=== PATIENT | male | born 1960 | race Caucasian/White ===

== ENCOUNTER 2019-11-24 08:35 | Emergency (ER) | payer OTHER, SELFPAY ==
[2019-11-24 08:42] VITALS: BP 159/85; PULSE 97; RESP 16; TEMP 36.7; O2SAT 97
--- NOTE | 2019-11-24 09:15 | ED.GENADUL_ITS ---
Discharge Plan Disposition Patient Disposition: HOME Condition: Good Discharge Details Chief Complaint: Orthopedic Clinical Impression: Shoulder sprain, Contusion of rib Primary Care Provider: Bessie Aviles V ED Provider: Keisha Rust Discharge Instructions Instructions: Shoulder Sprain (ED), Rib Contusion (ED) Additional Instructions: Rest. Activities as tolerated. Elevate injury to prevent swelling. Ice to the area of discomfort for 15 min. 3-5 times daily. Sling for 3 to 5 days. Do not sleep in sling, remove when desired. Pendulum exercises as discussed for comfort. Motrin every 8 hours with food or Tylenol every 6 hours for soreness if needed over the counter for comfort. Followup with orthopedic doctor as discussed if not improving in one week. Deep breathing exercises every 1-2 hours, 10 deep breaths while sitting as discussed. Ice to the chest wall for your first week of discomfort then you may begin using heat to the area as discussed Recheck with primary care doctor if pain is not improving in the next 5 to 7 days. Return for any worsening or concerns sooner if needed. Referrals: Aman Martinez MD [ [facility] STAFF PHYSICIAN] - Medical Decision Making Is a very pleasant 59-year-old patient presenting after a trip and fall this morning landing on outstretched left arm. Patient complaining of left shoulder pain as well as left rib pain. On exam patient does have left clavicle, shoulder as well as scapula tenderness, limited abduction of the left shoulder. No pain distal to the humerus. Distal neurovascularly intact. Patient also has notable left rib tenderness without obvious crepitus. Breath sounds full and equal. Vital signs reviewed. Patient appears in no apparent distress. Denies any associated head neck or back pain. Denies any other extremity injury. Plan to order x-rays of ribs as well as shoulder. Patient agrees with plan of care. Offered Motrin or Tylenol declines. X-rays of ribs, clavicle, shoulder reveal no acute fractures or injury. Reviewed with patient. Discussed use of sling, possible shoulder sprain versus potential ligamentous injury. Encourage pendulum exercise, sling for 3 to 5 days, rice and orthopedic follow-up if not improving in a week. Patient reports his understanding. Also discussed rib injury, deep breathing exercises, conservative treatments as well as alarming symptoms for which patient should return. Patient reports his understanding and agrees with plan of care. Encouraged follow-up with PCP if not improving promptly. The patient was stable and requested discharge. Prior to discharge, my usual and customary return precautions were reviewed with the patient - this included follow-up instructions and reasons to return to the Emergency Department if conditions worsens, does not improve as expected, or other new concerns arise. HPI General Date/Time Provider Initiated Documentation: 11/24/19 08:57 . HPI Narrative: Is a very pleasant 59-year-old gentleman presenting to the emergency room for a trip and fall forward on steps outside. Patient reports he kicked a step accidentally and was thrown forward. Patient fell on left outstretched arm. Patient complaining of both left shoulder pain as well as left rib discomfort. Patient denies striking head. Denies use of blood thinners. Denies headache, dizziness, nausea, vomiting or any associated head injury symptoms. Patient denies any neck or back pain. Patient specifically complaining of left shoulder pain and limited abduction of arm. Patient denies numbness, tingling or weakness of arms or legs. Patient also complaining of mild left discomfort in the chest which he is aware of but again no associated difficulty breathing shortness of breath or wheezing. Pain in the left chest is reproducible with palpation. Patient denies abdominal pain. Patient denies any lower extremity injury. Injuries occurred approximately 630 this morning. Related Data Allergies Allergy/AdvReac Type Severity Reaction Status Date / Time No Known Allergies Allergy Unverified 11/24/19 08:46 General Stated Complaint: Orthopedic BREANNA: 3 Review of Systems All systems reviewed & are unremarkable except as noted in HPI and below Constitutional Constitutional: Denies fatigue and Denies headache(s) ENT Ears, Nose, Mouth, and Throat: Denies headache(s) and Denies neck pain Cardiovascular Cardiovascular: Reports chest pain, Denies diaphoresis, Denies palpitations, Denies dyspnea and Denies dyspnea on exertion Respiratory Respiratory: Denies cough, Reports pain on inspiration, Reports pain with cough, Denies dyspnea, Denies dyspnea on exertion and Denies wheezing Gastrointestinal Gastrointestinal: Denies abdominal pain Genitourinary Genitourinary: Denies hematuria Musculoskeletal Musculoskeletal: Denies abnormal gait, Denies back pain, Denies deformity, Reports limited range of motion (Left shoulder), Denies neck pain, Denies numbness and Denies tingling Integumentary/Breasts Skin/Breast: Denies wounds Neurologic Neurologic: Denies abnormal gait, Denies headache(s), Denies numbness and Denies tingling Endocrine Endocrine: Denies fatigue and Denies palpitations Allergic/Immunologic Allergic/Immunologic: Denies wheezing [facility] Social History Smoking/Tobacco Use Status: Former Tobacco Use Drug use: Never Do you feel safe in your relationship?: Yes Exam Narrative Exam Narrative: CONST: Healthy appearing patient, in no acute distress. Well hydrated. Alert and oriented. HENMT: Head nomocephalic, normal to inspection. Atraumatic. Hearing grossly normal. EYES: General normal appearance. Alignment normal. Eyelids normal. Conjunctiva normal. NECK: Normal visual inspection. FROM. Trachea midline. No Midline tenderness. CHEST: Normal insepection of the chest. Left anterior and lateral chest wall tenderness with palpation. No obvious deformities. No crepitus. RESP: Normal respiratory effort. Speaking full sentences. No cough. No audible wheezing. No retractions. Breath sounds are clear, full and equal bilaterally. No rhonchi, rales or wheezing. CARDIO: No JVD. Regular rate and rhythm no murmur. No muffled heart sounds. MUSCULOSKELETAL: Normal Gait. FROM of all extremities w/ exception of left shoulder. Left mid and distal clavicle pain with palpation. Pain with palpat ion of the GH joint on the left. Mild lateral shoulder tenderness with palpation. Moderate scapular tenderness with palpation. Limited abduction of left shoulder due to pain. No significant humeral pain with palpation, no elbow pain with palpation. Supination pronation intact at the elbow. No wrist pain or hand pain with palpation. Sensation intact distally. Pulses intact distally. GI: Abdomen is soft, nontender, bowel sounds present in all 4 quadrants. No rebound, guarding or peritoneal signs. Specifically no left upper quadrant tenderness SKIN: Normal. Dry. No rashes. No wounds noted NEURO: Alert and awake. Speech clear. PSYCH: Normal affect. Cooperative. Course Vital Signs Vital signs: Vital Signs Temperature 36.7 C 11/24/19 08:42 Pulse 97 H 11/24/19 08:42 Respiratory Rate 16 11/24/19 08:42 Blood Pressure 159/85 H 11/24/19 08:42 Pulse Oximetry 97 11/24/19 08:42 Temperature 36.7 C 11/24/19 08:42 Temperature Source Skin 11/24/19 08:42 Pulse 97 H 11/24/19 08:42 Respiratory Rate 16 11/24/19 08:42 Respiratory Effort 11/24/19 08:46 Blood Pressure 159/85 H 11/24/19 08:42 Blood Pressure Position Sitting 11/24/19 08:42 Pulse Oximetry 97 11/24/19 08:42 Oxygen Delivery Method Room Air 11/24/19 08:42 Oxygen Flow Rate 0 11/24/19 08:42 Pain Level 3 11/24/19 08:42
--- NOTE | 2019-11-24 09:30 | DI.RAD_ITS ---
EXAM: XR RIBS LT PA CHEST 3V INDICATION: pain, fall left rib pain. COMPARISON: RIGHT RIBS PA CXR-3 VIEWS from 07/25/2013 RIGHT SHOULDER COMPLETE from 05/22/2016 RIGHT SHOULDER COMPLETE from 03/30/2017 XR CLAVICLE LT from 11/24/2019 TECHNIQUE: 2D digital imaging was performed. FINDINGS: Heart size and pulmonary vasculature are within normal limits. No focal consolidating infiltrates ar e seen. There is pulmonary scarring seen in the lung bases. The findings are more prominent compare d to the prior examination from 2012. No pleural effusion or pneumothorax is identified. No left ri b fracture is seen. IMPRESSION: No rib fracture.
--- NOTE | 2019-11-24 09:33 | DI.RAD_ITS ---
EXAM: XR CLAVICLE LT INDICATION: fall, injury. COMPARISON: No exams were available for comparison TECHNIQUE: 2D digital imaging was performed. FINDINGS: No acute fracture or dislocation is present. IMPRESSION: No acute fracture or dislocation.
--- NOTE | 2019-11-24 09:35 | DI.RAD_ITS ---
EXAM: XR SHOULDER LT COMPLETE 2+V INDICATION: fall, injury, PAIN COMPARISON: RIGHT SHOULDER COMPLETE from 03/30/2017 TECHNIQUE: 2D digital imaging was performed. FINDINGS: No acute fracture or dislocation is identified. There are degenerative changes seen at the acromiocl avicular joint. Soft tissue calcifications are seen lateral to the acromion likely reflecting calcif ic tendinitis. Soft tissues are otherwise unremarkable. IMPRESSION: No acute abnormality.
== END 2019-11-24 11:13 | disposition home or self-care (01) ==
PROVIDERS: Emergency Provider Physician Assistant; PCP Family Medicine
DX: S43.402A Unspecified sprain of left shoulder joint, initial encounter (principal); S20.212A Contusion of left front wall of thorax, initial encounter; W01.198A Fall on same level from slipping, tripping and stumbling with subsequent striking against other object, initial encounter; W10.8XXA Fall (on) (from) other stairs and steps, initial encounter
CPT/HCPCS: 71101; 99284; 73000; 73030; L3650

== ENCOUNTER 2019-12-08 17:24 | Outpatient (REF) | payer OTHER, SELFPAY ==
[2019-12-08 22:18] LABS: HCT 39.7 % (40.0-50.0); HGB 13.5 g/dL (13.5-17.5); Mean Corpuscular Hemoglobin 30.5 pg (27.0-33.0); Mean Corpuscular Volume 89.6 fL (80-95); Mean Platelet Volume 10.4 fL (8.0-11.0); Platelet Count 520 x1000/uL (130-400); RBC 4.43 m/cumm (4.50-6.00); White Blood Cell Count 13.65 k/cumm (4.4-10.8)
[2019-12-08 23:05] LABS: ALT 25 U/L (16-63); AST 17 U/L (15-37); Albumin 3.6 g/dL (3.4-5.0); Alkaline Phosphatase 117 U/L (46-116); Anion Gap 10.7 mmol/L (3-11); BUN 14 mg/dL (7-18); Bilirubin, Total 0.2 mg/dL (0.2-1.0); CO2 25.3 mmol/L (21.0-32.0); CREATININE 1.11 mg/dL (0.70-1.30); Calcium 8.7 mg/dL (8.5-10.1); Chloride 106 mmol/L (98-107); Glucose 113 mg/dL (74-106); Sodium 142 mmol/L (136-145); TSH (W/Ref FT4) 1.52 uIU/mL (0.36-3.74); Total Protein 6.8 g/dL (6.4-8.2); Uric Acid 4.9 mg/dL (3.5-7.2)
[2019-12-10 08:59] LABS: C-Reactive Protein 3.22 mg/dL (0.0-0.3)
[2019-12-10 10:57] LABS: Hepatitis C Ab w Rflx HCV PCR Negative (Negative)
[2019-12-11 13:04] LABS: Lyme Ab w Rflx to Lyme Confirm Negative (Negative)
[2019-12-15 00:03] LABS: Anaplasma phagocytophilum Negative (Negative); B. miyamotoi PCR Negative (Negative); Babesia divergens/MO-1 Negative (Negative); Babesia duncani Negative (Negative); Babesia microti Negative (Negative); Ehrlichia chaffeensis Negative (Negative); Ehrlichia ewingii/canis Negative (Negative); Ehrlichia muris eauclairensis Negative (Negative)
== END 2019-12-08 17:44 ==
LOC: NCHCN 17:24
PROVIDERS: PCP Family Medicine; Visit Provider Family Medicine
DX: Z00.00 Encounter for general adult medical examination without abnormal findings (principal); R53.83 Other fatigue; E78.5 Hyperlipidemia, unspecified; M25.40 Effusion, unspecified joint; Z12.5 Encounter for screening for malignant neoplasm of prostate; Z11.59 Encounter for screening for other viral diseases; M25.512 Pain in left shoulder; R07.81 Pleurodynia
CPT/HCPCS: 80053; 84153; 85027; 86803; 87798; 84443; 84550; 86140; 86618

== ENCOUNTER 2019-12-11 17:02 | Outpatient (REF) | payer OTHER, SELFPAY ==
[2019-12-11 19:56] LABS: ESR 72 mm/hr (1-20)
[2019-12-14 15:16] LABS: ANA Interpretation Positive (Negative); ANA Titer Pattern 1:160 Homogeneous
== END 2019-12-11 17:22 ==
LOC: NCHCN 17:02
PROVIDERS: PCP Family Medicine; Visit Provider Family Medicine
DX: M25.40 Effusion, unspecified joint (principal)
CPT/HCPCS: 85652; 86038; 86431

== ENCOUNTER 2019-12-17 01:41 | Outpatient (CLI) | payer OTHER, SELFPAY ==
--- NOTE | 2019-12-17 09:33 | DI.RAD_ITS ---
EXAM: XR FOOT RT COMPLETE CLINICAL HISTORY: FOOT PAIN, M79.673, JOINT SWELLING, M25.40 TECHNIQUE: COMPARISON: No exams were available for comparison FINDINGS: Three views were obtained. There is an apparent old osteotomy of the head of the 5th metatarsal. Mi ld degenerative changes of the IP joints noted. No other significant abnormality seen. IMPRESSION:
--- NOTE | 2019-12-17 09:36 | DI.RAD_ITS ---
EXAM: XR ARTHRITIS SERIES CLINICAL HISTORY: JOINT SWELLING, M25.40 TECHNIQUE: COMPARISON: LEFT HAND COMPLETE from 07/25/2013 FINDINGS: Two views of each hand and wrist were obtained. Old healed fracture deformity of right 5th metacarpa l noted. No other bony or soft tissue abnormality seen. Carpal alignment appears within normal limi ts bilaterally. IMPRESSION:
[2019-12-22 14:38] LABS: dsDNA Ab, IgG <12.3 IU/mL (<30.0)
== END 2019-12-17 02:01 ==
PROVIDERS: PCP Family Medicine; Visit Provider Family Medicine
DX: M79.671 Pain in right foot (principal); M19.071 Primary osteoarthritis, right ankle and foot; M25.541 Pain in joints of right hand; M25.542 Pain in joints of left hand
CPT/HCPCS: 36415; 73120; 73630; 86225

== ENCOUNTER 2019-12-29 01:54 | Outpatient (CLI) | payer OTHER, SELFPAY ==
--- NOTE | 2019-12-29 07:30 | DI.MRI_ITS ---
EXAM: MR UPPER JOINT LT WO CLINICAL HISTORY: Acute, traumatic biceps anchor pain and rotator cuff weakness, SLAP LESION,IMPINGE MENT SYNDROME, TENDINITIS, M75.102,S43.432A,M75.52,M75.42,M75.22 TECHNIQUE: Multiplanar multisequence MRI was performed. COMPARISON: No exams were available for comparison FINDINGS: There is increased signal seen on the T2 weighted images within the supraspinatus tendon anteriorly s uspicious for partial tear. Infraspinatus and teres minor tendons are unremarkable. There is increased signal and thickening of the superior aspect of the subscapularis tendon near its insertion site. This may represent partial tear versus tendinitis. The biceps tendon is of homogeneously low signal. There does not appear to be a tear. The rotator cuff muscles show normal signal and size. No significant fatty atrophy is present. There are degenerative signal changes at the acromioclavicular joint. No evidence of an occult fract ure is present. The glenohumeral joint appears unremarkable. The glenoid labrum is grossly unremarkable on this noncontrast examination. There is fluid seen in the subacromial subdeltoid bursa consistent with bursitis. No evidence of a s oft tissue mass is seen. The coracoclavicular ligaments are intact. IMPRESSION: 1. Findings suspicious for a partial tear of the supraspinatus tendon. 2. Partial tear versus tendinosis of the subscapularis tendon. 3. No evidence of a biceps tendon tear. 4. Subacromial subdeltoid bursitis.
== END 2019-12-29 02:14 ==
PROVIDERS: PCP Family Medicine; Visit Provider Student in an Organized Health Care Education/Training Program
DX: M25.512 Pain in left shoulder (principal); M75.102 Unspecified rotator cuff tear or rupture of left shoulder, not specified as traumatic; M75.42 Impingement syndrome of left shoulder; M75.22 Bicipital tendinitis, left shoulder
CPT/HCPCS: 73221

== ENCOUNTER 2020-03-23 03:34 | Outpatient (CLI) | payer OTHER, SELFPAY ==
[2020-03-23 13:33] LABS: Abs Immature Grans 0.04 k/cumm (0.0-0.09); Absolute Basophil Count 0.03 k/cumm (0.0-0.2); Absolute Eosinophil Count 0.29 k/cumm (0.0-0.7); Absolute Lymphocyte Count 2.11 k/cumm (1.2-3.4); Absolute Monocyte Count 0.83 k/cumm (0.11-0.7); Absolute Neutrophil Count 6.47 k/cumm (1.2-6.7); Basophils % 0.3; HGB 13.6 g/dL (13.5-17.5); Immature Grans % 0.4 %; Lymphocytes % 21.6; Mean Corpuscular Volume 91.1 fL (80-95); Mean Platelet Volume 9.2 fL (8.0-11.0); Monocytes % 8.5; Neutrophils % 66.2; Platelet Count 470 x1000/uL (130-400); RBC 4.39 m/cumm (4.50-6.00); RBC Distribution Width 14.9 % (11.8-14.1); White Blood Cell Count 9.77 k/cumm (4.4-10.8)
[2020-03-23 14:18] LABS: ALT 40 U/L (16-63); AST 21 U/L (15-37); Albumin 3.7 g/dL (3.4-5.0); Alkaline Phosphatase 111 U/L (46-116); Anion Gap 5.8 mmol/L (3-11); BUN 16 mg/dL (7-18); Bilirubin, Total 0.2 mg/dL (0.2-1.0); C-Reactive Protein 0.58 mg/dL (0.0-0.3); CO2 28.2 mmol/L (21.0-32.0); Calcium 9.2 mg/dL (8.5-10.1); Chloride 105 mmol/L (98-107); Glucose 86 mg/dL (74-106); Potassium 4.4 mmol/L (3.5-5.1); Sodium 139 mmol/L (136-145); Total Protein 6.9 g/dL (6.4-8.2)
== END 2020-03-23 03:54 ==
PROVIDERS: PCP Family Medicine; Visit Provider Internal Medicine Rheumatology
DX: M05.69 Rheumatoid arthritis of multiple sites with involvement of other organs and systems (principal); Z79.899 Other long term (current) drug therapy
CPT/HCPCS: 36415; 80053; 85025; 86140

== ENCOUNTER 2020-06-03 02:08 | Outpatient (CLI) | payer MEDICAID, SELFPAY ==
[2020-06-03 11:15] LABS: Abs Immature Grans 0.05 k/cumm (0.0-0.09); Absolute Basophil Count 0.02 k/cumm (0.0-0.2); Absolute Lymphocyte Count 2.11 k/cumm (1.2-3.4); Absolute Monocyte Count 0.81 k/cumm (0.11-0.7); Basophils % 0.2; Eosinophils % 2.1; HCT 44.5 % (40.0-50.0); HGB 15.1 g/dL (13.5-17.5); Immature Grans % 0.5 %; Lymphocytes % 22.5; Mean Corp. HGB Concentration 33.9 g/dL (32.0-36.0); Mean Corpuscular Hemoglobin 30.8 pg (27.0-33.0); Mean Corpuscular Volume 90.8 fL (80-95); Mean Platelet Volume 9.8 fL (8.0-11.0); Monocytes % 8.6; Neutrophils % 66.1; Platelet Count 418 x1000/uL (130-400); RBC Distribution Width 13.8 % (11.8-14.1); White Blood Cell Count 9.39 k/cumm (4.4-10.8)
[2020-06-03 11:48] LABS: ALT 46 U/L (16-63); AST 25 U/L (15-37); Alkaline Phosphatase 111 U/L (46-116); Anion Gap 10.2 mmol/L (3-11); BUN 12 mg/dL (7-18); Bilirubin, Total 0.6 mg/dL (0.2-1.0); C-Reactive Protein 0.35 mg/dL (0.0-0.3); CO2 25.8 mmol/L (21.0-32.0); CREATININE 1.12 mg/dL (0.70-1.30); Calcium 9.3 mg/dL (8.5-10.1); Chloride 103 mmol/L (98-107); Glucose 102 mg/dL (74-106); Potassium 4.4 mmol/L (3.5-5.1); Sodium 139 mmol/L (136-145); Total Protein 7.2 g/dL (6.4-8.2)
== END 2020-06-03 02:28 ==
PROVIDERS: PCP Family Medicine; Visit Provider Internal Medicine Rheumatology
DX: Z79.899 Other long term (current) drug therapy (principal); M05.69 Rheumatoid arthritis of multiple sites with involvement of other organs and systems
CPT/HCPCS: 36415; 80053; 85025; 86140

== ENCOUNTER 2020-08-17 01:06 | Outpatient (CLI) | payer MEDICAID, SELFPAY ==
[2020-08-17 12:39] LABS: Abs Immature Grans 0.05 10^3/uL (0.0-0.06); Absolute Basophil Count 0.04 10^3/uL (0.0-0.2); Absolute Eosinophil Count 0.19 10^3/uL (0.0-0.7); Absolute Lymphocyte Count 2.22 10^3/uL (1.2-3.4); Absolute Monocyte Count 0.68 10^3/uL (0.1-0.8); Absolute Neutrophil Count 7.41 10^3/uL (1.2-6.7); Basophils % 0.4; Eosinophils % 1.8; HCT 39.7 % (40.0-50.0); HGB 13.5 g/dL (13.5-17.5); Immature Grans % 0.5; MCH 31.8 pg (27.0-33.0); MCV 93.4 fL (80-95); MPV 9.5 fL (8.0-11.0); Monocytes % 6.4; Neutrophils % 69.9; Nucleated RBC 0 %; Platelet Count 400 10^3/uL (130-400); RBC 4.25 10^6/uL (4.36-5.78); RDW 13.2 % (11.8-14.1); RDW-SD 45.2 fL; WBC 10.59 10^3/uL (4.4-10.8)
[2020-08-17 13:15] LABS: ALT 39 U/L (16-63); AST 21 U/L (15-37); Albumin 3.8 g/dL (3.4-5.0); Alkaline Phosphatase 99 U/L (46-116); Anion Gap 7.1 mmol/L (3-11); BUN 17 mg/dL (7-18); Bilirubin, Total 0.3 mg/dL (0.2-1.0); C-Reactive Protein 0.26 mg/dL (0.0-0.3); CO2 28.9 mmol/L (21.0-32.0); CREATININE 1.34 mg/dL (0.70-1.30); Calcium 8.9 mg/dL (8.5-10.1); Chloride 105 mmol/L (98-107); Estimated GFR 54.01 (mL/min/1.73m2); Glucose 125 mg/dL (74-106); Potassium 4.3 mmol/L (3.5-5.1); Sodium 141 mmol/L (136-145); Total Protein 6.6 g/dL (6.4-8.2)
== END 2020-08-17 01:26 ==
PROVIDERS: PCP Family Medicine; Visit Provider Internal Medicine Rheumatology
DX: M05.69 Rheumatoid arthritis of multiple sites with involvement of other organs and systems (principal); Z79.899 Other long term (current) drug therapy
CPT/HCPCS: 36415; 80053; 85025; 86140

== ENCOUNTER 2020-11-15 03:15 | Outpatient (CLI) | payer MEDICAID, SELFPAY ==
[2020-11-15 11:48] LABS: Abs Immature Grans 0.05 10^3/uL (0.0-0.06); Absolute Basophil Count 0.05 10^3/uL (0.0-0.2); Absolute Eosinophil Count 0.23 10^3/uL (0.0-0.7); Absolute Lymphocyte Count 2.05 10^3/uL (1.2-3.4); Absolute Monocyte Count 0.96 10^3/uL (0.1-0.8); Absolute Neutrophil Count 6.77 10^3/uL (1.2-6.7); Basophils % 0.5; Eosinophils % 2.3; HCT 44.9 % (40.0-50.0); Immature Grans % 0.5; Lymphocytes % 20.3; MCH 31.6 pg (27.0-33.0); MCHC 33.4 % (32.0-36.0); MCV 94.5 fL (80-95); MPV 9.6 fL (8.0-11.0); Monocytes % 9.5; Neutrophils % 66.9; Nucleated RBC 0 %; Platelet Count 394 10^3/uL (130-400); RBC 4.75 10^6/uL (4.36-5.78); RDW 13.1 % (11.8-14.1); WBC 10.11 10^3/uL (4.4-10.8)
[2020-11-15 12:40] LABS: ALT 77 U/L (16-63); AST 33 U/L (15-37); Albumin 3.9 g/dL (3.4-5.0); Alkaline Phosphatase 104 U/L (46-116); Anion Gap 5.8 mmol/L (3-11); BUN 13 mg/dL (7-18); Bilirubin, Total 0.4 mg/dL (0.2-1.0); C-Reactive Protein 0.42 mg/dL (0.0-0.3); CO2 28.2 mmol/L (21.0-32.0); Calcium 9.4 mg/dL (8.5-10.1); Chloride 106 mmol/L (98-107); Glucose 92 mg/dL (74-106); Potassium 4.4 mmol/L (3.5-5.1); Sodium 140 mmol/L (136-145)
== END 2020-11-15 03:35 ==
PROVIDERS: PCP Family Medicine; Visit Provider Internal Medicine Rheumatology
DX: M05.69 Rheumatoid arthritis of multiple sites with involvement of other organs and systems (principal); Z79.899 Other long term (current) drug therapy
CPT/HCPCS: 36415; 80053; 85025; 86140

== ENCOUNTER 2021-01-11 04:27 | Outpatient (CLI) | payer MEDICAID, SELFPAY ==
[2021-01-11 11:38] LABS: Abs Immature Grans 0.06 10^3/uL (0.0-0.06); Absolute Basophil Count 0.05 10^3/uL (0.0-0.2); Absolute Eosinophil Count 0.17 10^3/uL (0.0-0.7); Absolute Lymphocyte Count 2.26 10^3/uL (1.2-3.4); Absolute Monocyte Count 0.84 10^3/uL (0.1-0.8); Basophils % 0.5; Eosinophils % 1.8; HCT 42.8 % (40.0-50.0); HGB 14.4 g/dL (13.5-17.5); Immature Grans % 0.6; Lymphocytes % 23.6; MCH 31.4 pg (27.0-33.0); MCHC 33.6 % (32.0-36.0); MCV 93.2 fL (80-95); MPV 9.5 fL (8.0-11.0); Monocytes % 8.8; Neutrophils % 64.7; Nucleated RBC 0 %; Platelet Count 385 10^3/uL (130-400); RBC 4.59 10^6/uL (4.36-5.78); RDW-SD 44.4 fL; WBC 9.58 10^3/uL (4.4-10.8)
[2021-01-11 12:22] LABS: ALT 55 U/L (16-63); AST 27 U/L (15-37); Albumin 3.8 g/dL (3.4-5.0); Alkaline Phosphatase 108 U/L (46-116); Anion Gap 7.7 mmol/L (3-11); BUN 15 mg/dL (7-18); Bilirubin, Total 0.4 mg/dL (0.2-1.0); C-Reactive Protein 0.28 mg/dL (0.0-0.3); CO2 28.3 mmol/L (21.0-32.0); Calcium 8.9 mg/dL (8.5-10.1); Chloride 105 mmol/L (98-107); Glucose 87 mg/dL (74-106); Potassium 4.2 mmol/L (3.5-5.1); Sodium 141 mmol/L (136-145)
[2021-01-11 12:23] LABS: Calculated LDL 140 mg/dL (<100); Cholesterol 199 mg/dL (<200); HDL Cholesterol 48 mg/dL (40-60); Triglyceride 55 mg/dL (<150)
[2021-01-11 22:40] LABS: PSA, Screening 0.7 ng/mL (0.0-4.5)
== END 2021-01-11 04:28 | disposition home or self-care (01) ==
LOC: LBO 04:28
PROVIDERS: PCP Family Medicine; Visit Provider Internal Medicine Rheumatology
DX: E78.5 Hyperlipidemia, unspecified (principal); Z12.5 Encounter for screening for malignant neoplasm of prostate; M05.69 Rheumatoid arthritis of multiple sites with involvement of other organs and systems; Z79.899 Other long term (current) drug therapy
CPT/HCPCS: 36415; 80053; 80061; 84153; 85025; 86140

== ENCOUNTER → 2021-04-03 00:44 | Outpatient (CLI) | payer MEDICAID, SELFPAY ==
--- NOTE | 2021-04-03 10:30 | DI.RAD_ITS ---
Exam(s) XR SHOULDER RT COMPLETE 2+V EXAM: XR SHOULDER RT COMPLETE 2+V CLINICAL HISTORY: CHRONIC RT SHOULDER PAIN, M25.511,G89.29. TECHNIQUE: 2D digital imaging was performed. COMPARISON: CR XR SHOULDER LT COMPLETE 2+V from 11/24/2019 FINDINGS: There is no evidence of fracture or dislocation no abnormal soft tissue calcifications in the subacro mial space. There are mild degenerative changes in the glenohumeral joint. Also mild degenerative c hanges in the acromioclavicular joint. IMPRESSION: Mild degenerative changes. If clinically indicated follow-up MRI can be performed DATA REPOSITORY: RADIATION DOSE DELIVERED:
--- NOTE | 2021-04-03 10:30 | DI.RAD_ITS ---
Exam(s) XR SHOULDER LT COMPLETE 2+V EXAM: XR SHOULDER LT COMPLETE 2+V CLINICAL HISTORY: CHRONIC LT SHOULDER PAIN,M25.512,G89.29. TECHNIQUE: 2D digital imaging was performed. COMPARISON: CR RIGHT SHOULDER COMPLETE from 03/30/2017 CR XR SHOULDER RT COMPLETE 2+V from 04/03/2021 FINDINGS: There is no evidence of acute fracture nor dislocation. However, there is a small 1 millimeter calci fic density off the inferior aspect of the osseous glenoid noted. This may be related to injury at t his level such as Bankart lesion. Other possible is for calcification in the inferior labrum. There are 2 calcific density seen lateral to the acromion both measuring approximately 3 x 2 millimeters. Some degenerative change in the AC joint noted causing mild impingement upon the subacromial space.. Mild degenerative changes in the glenohumeral joint. No os acromiale. Ipsilateral clavicle appear s intact. IMPRESSION: Small calcification just inferior to the osseous glenoid. Correlation with any prior dislocation rec ommended DATA REPOSITORY: RADIATION DOSE DELIVERED:
[2021-04-03 12:10] LABS: Abs Immature Grans 0.06 10^3/uL (0.0-0.06); Absolute Basophil Count 0.07 10^3/uL (0.0-0.2); Absolute Eosinophil Count 0.22 10^3/uL (0.0-0.7); Absolute Lymphocyte Count 2.05 10^3/uL (1.2-3.4); Absolute Monocyte Count 1.12 10^3/uL (0.1-0.8); Absolute Neutrophil Count 5.86 10^3/uL (1.2-6.7); Basophils % 0.7; Eosinophils % 2.3; HCT 45.4 % (40.0-50.0); HGB 15.2 g/dL (13.5-17.5); Immature Grans % 0.6; Lymphocytes % 21.9; MCH 31.6 pg (27.0-33.0); MCHC 33.5 % (32.0-36.0); MCV 94.4 fL (80-95); MPV 9.8 fL (8.0-11.0); Monocytes % 11.9; Neutrophils % 62.6; Nucleated RBC 0 %; Platelet Count 413 10^3/uL (130-400); RBC 4.81 10^6/uL (4.36-5.78); RDW 13.2 % (11.8-14.1); RDW-SD 45.8 fL; WBC 9.38 10^3/uL (4.4-10.8)
[2021-04-03 12:45] LABS: ALT 55 U/L (16-63); AST 21 U/L (15-37); Albumin 3.9 g/dL (3.4-5.0); Alkaline Phosphatase 113 U/L (46-116); Anion Gap 6.1 mmol/L (3-11); BUN 13 mg/dL (7-18); Bilirubin, Total 0.4 mg/dL (0.2-1.0); C-Reactive Protein 0.29 mg/dL (0.0-0.3); CO2 31.9 mmol/L (21.0-32.0); Calcium 9.4 mg/dL (8.5-10.1); Chloride 105 mmol/L (98-107); Glucose 89 mg/dL (74-106); Potassium 4.3 mmol/L (3.5-5.1); Sodium 143 mmol/L (136-145); Total Protein 7.3 g/dL (6.4-8.2)
== END ==
PROVIDERS: PCP Family Medicine; Visit Provider Internal Medicine Rheumatology
DX: M25.511 Pain in right shoulder (principal); G89.29 Other chronic pain; M25.512 Pain in left shoulder; M25.812 Other specified joint disorders, left shoulder; M19.011 Primary osteoarthritis, right shoulder; M19.012 Primary osteoarthritis, left shoulder
CPT/HCPCS: 36415; 80053; 73030; 85025; 86140

== ENCOUNTER 2021-06-16 02:19 | Outpatient (CLI) | payer MEDICAID, SELFPAY ==
[2021-06-16 07:41] LABS: Abs Immature Grans 0.09 10^3/uL (0.0-0.06); Absolute Basophil Count 0.07 10^3/uL (0.0-0.2); Absolute Lymphocyte Count 2.08 10^3/uL (1.2-3.4); Absolute Neutrophil Count 7.28 10^3/uL (1.2-6.7); Basophils % 0.6; Eosinophils % 1.8; HCT 42.4 % (40.0-50.0); HGB 14.3 g/dL (13.5-17.5); Immature Grans % 0.8; Lymphocytes % 19.1; MCH 31.4 pg (27.0-33.0); MCHC 33.7 % (32.0-36.0); MCV 93.2 fL (80-95); MPV 9.5 fL (8.0-11.0); Neutrophils % 66.7; Nucleated RBC 0 %; Platelet Count 373 10^3/uL (130-400); RBC 4.55 10^6/uL (4.36-5.78); RDW 12.9 % (11.8-14.1); RDW-SD 44.1 fL; WBC 10.91 10^3/uL (4.4-10.8)
[2021-06-16 09:10] LABS: ALT 52 U/L (16-63); AST 22 U/L (15-37); Albumin 3.6 g/dL (3.4-5.0); Alkaline Phosphatase 109 U/L (46-116); Anion Gap 7.2 mmol/L (3-11); BUN 16 mg/dL (7-18); Bilirubin, Total 0.4 mg/dL (0.2-1.0); C-Reactive Protein 0.87 mg/dL (0.0-0.3); CO2 27.8 mmol/L (21.0-32.0); CREATININE 1.1 mg/dL (0.70-1.30); Chloride 107 mmol/L (98-107); Glucose 106 mg/dL (74-106); Potassium 4.3 mmol/L (3.5-5.1); Sodium 142 mmol/L (136-145); Total Protein 6.7 g/dL (6.4-8.2)
== END 2021-06-16 02:20 | disposition home or self-care (01) ==
LOC: LBO 02:20
PROVIDERS: PCP Family Medicine; Visit Provider Internal Medicine Rheumatology
DX: M05.79 Rheumatoid arthritis with rheumatoid factor of multiple sites without organ or systems involvement (principal)
CPT/HCPCS: 36415; 80053; 85025; 86140

== ENCOUNTER 2021-08-30 03:38 | Outpatient (CLI) | payer MEDICAID, SELFPAY ==
[2021-08-30 08:42] LABS: Abs Immature Grans 0.04 10^3/uL (0.0-0.06); Absolute Basophil Count 0.07 10^3/uL (0.0-0.2); Absolute Eosinophil Count 0.17 10^3/uL (0.0-0.7); Absolute Lymphocyte Count 1.89 10^3/uL (1.2-3.4); Absolute Monocyte Count 0.92 10^3/uL (0.1-0.8); Absolute Neutrophil Count 6.14 10^3/uL (1.2-6.7); Basophils % 0.8; Eosinophils % 1.8; HCT 44.3 % (40.0-50.0); HGB 14.6 g/dL (13.5-17.5); Immature Grans % 0.4; Lymphocytes % 20.5; MCH 30.9 pg (27.0-33.0); MCV 93.9 fL (80-95); MPV 9.4 fL (8.0-11.0); Neutrophils % 66.5; Nucleated RBC 0 %; Platelet Count 370 10^3/uL (130-400); RBC 4.72 10^6/uL (4.36-5.78); RDW 12.9 % (11.8-14.1); RDW-SD 44.3 fL; WBC 9.23 10^3/uL (4.4-10.8)
[2021-08-30 08:57] LABS: ALT 44 U/L (16-63); AST 21 U/L (15-37); Albumin 3.8 g/dL (3.4-5.0); Alkaline Phosphatase 112 U/L (46-116); Anion Gap 1.9 mmol/L (3-11); BUN 13 mg/dL (7-18); Bilirubin, Total 0.4 mg/dL (0.2-1.0); C-Reactive Protein 0.52 mg/dL (0.0-0.3); CO2 33.1 mmol/L (21.0-32.0); CREATININE 1.1 mg/dL (0.70-1.30); Calcium 8.9 mg/dL (8.5-10.1); Chloride 107 mmol/L (98-107); Glucose 107 mg/dL (74-106); Potassium 4.2 mmol/L (3.5-5.1); Sodium 142 mmol/L (136-145); Total Protein 7.3 g/dL (6.4-8.2)
== END 2021-08-30 03:39 | disposition home or self-care (01) ==
LOC: LBO 03:38
PROVIDERS: PCP Family Medicine; Visit Provider Internal Medicine Rheumatology
DX: M05.79 Rheumatoid arthritis with rheumatoid factor of multiple sites without organ or systems involvement (principal)
CPT/HCPCS: 36415; 80053; 85025; 86140

== ENCOUNTER 2021-09-12 02:03 | Outpatient (CLI) | payer MEDICAID, SELFPAY ==
[2021-09-12 12:14] LABS: Source Nasal/Nares
[2021-09-12 16:24] LABS: COVID-19 PCR Negative (Negative)
== END 2021-09-12 02:04 | disposition home or self-care (01) ==
PROVIDERS: PCP Family Medicine; Visit Provider Student in an Organized Health Care Education/Training Program
DX: Z20.822 Contact with and (suspected) exposure to COVID-19 (principal)
CPT/HCPCS: 87635

== ENCOUNTER 2021-09-14 05:52 | Day surgery (SDC) | payer MEDICAID, SELFPAY ==
[2021-09-14] VITALS (8 sets, daily range): BP systolic 75–134; BP diastolic 52–76; PULSE 60–71; RESP 16–19; TEMP 35.9–36.5; O2SAT 96–99; BMI 27.6
--- NOTE | 2021-09-14 06:54 | W.ANESPRE ---
General Info Date of Service Date Performed: 09/14/21 Height: 5 ft 10 in Weight: 87.5 kg Body Mass Index (BMI): 27.6 Surgical Procedure: Operation Date: 09/14/21 07:40 Proposed Procedures Side Surgeon p Shoulder Rotator Cuff Arthroscopic Left Charli Bruce MD Meds Allergies and Home Medications Allergies Allergy/AdvReac Type Severity Reaction Status Date / Time No Known Allergies Allergy Verified 09/14/21 06:15 Home Medication Medication Instructions Recorded folic acid 1 mg tablet 1 mg PO DAILY 06/06/21 methotrexate sodium 10 mg tablet 35 mg PO QWEEK tab 06/06/21 Current Visit Medications: Current Medications Generic Name Dose Route Start Last Admin Trade Name Freq PRN Reason Stop Dose Admin Ringer's Solution 1,000 mls @ 100 mls/hr 09/14/21 06:00 IV 10/13/21 23:59 INFUSION ROLAND Cefazolin Sodium/Dextrose 2 gm in 50 mls @ 100 mls/hr 09/14/21 06:00 Ancef Duplex IVPB 09/14/21 16:00 PREOP ROLAND IV Miscellaneous Supplies 1 each 09/14/21 06:00 Iv Access IV 10/13/21 23:59 DIRECTED ROLAND Sodium Chloride 0 ml 09/14/21 06:00 Normal Saline Flush 10 Ml Syr IV 10/13/21 23:59 PRN PRN Sodium Chloride 0 ml 09/14/21 06:00 Normal Saline 10 Ml Vial IJ 10/13/21 23:59 DIRECTED PRN Sterile Water 0 ml 09/14/21 06:00 Water,Injection,Sterile 10 Ml Vial IJ 10/13/21 23:59 DIRECTED PRN PFSH Active Problems Active Problems: Problem Status Onset Code Left rotator cuff tear 11/24/19 M75.102 Tendinitis of long head of biceps brachii of left shoulder ~11/2019 M75.22 No-show for appointment Z53.29 Rheumatoid arthritis M06.9 Polymyalgia rheumatica M35.3 Rotator cuff tear, right M75.101 Bursitis of right shoulder M75.51 Tendonitis of long head of biceps brachii of right shoulder M75.21 Bursitis of left shoulder M75.52 Medical History Medical History Bursitis of left shoulder Impingement syndrome of left shoulder Rheumatoid arthritis SLAP lesion of left shoulder (11/24/19) Tobacco Smoking/Tobacco Use Status: Former Tobacco Use Alcohol Alcohol Intake: never Substance Use Substance use: Never Substance use type: does not use Vital Signs and Lab Results Vital Signs Most Recent Vital Signs in EMR: Most Recent Vital Signs Temp Pulse Resp BP Pulse Ox 36.4 C L 71 18 134/76 99 09/14/21 05:56 09/14/21 05:56 09/14/21 05:56 09/14/21 05:56 09/14/21 05:56 Lab Results Blood Type / Crossmatch: No Data to Display Complete Blood Count: White Blood Count 9.23 10^3/uL (4.4-10.8) 08/30/21 08:30 08/30/21 Red Blood Count 4.72 10^6/uL (4.36-5.78) 08/30/21 08:30 08/30/21 Hemoglobin 14.6 g/dL (13.5-17.5) 08/30/21 08:30 08/30/21 Hematocrit 44.3 % (40.0-50.0) 08/30/21 08:30 08/30/21 Platelet Count 370 10^3/uL (130-400) 08/30/21 08:30 08/30/21 Complete Metabolic Panel: Sodium Level 142 mmol/L (136-145) 08/30/21 08:30 08/30/21 Potassium Level 4.2 mmol/L (3.5-5.1) 08/30/21 08:30 08/30/21 Chloride Level 107 mmol/L (98-107) 08/30/21 08:30 08/30/21 Carbon Dioxide Level 33.1 mmol/L (21.0-32.0) H 08/30/21 08:30 08/30/21 Blood Urea Nitrogen 13 mg/dL (7-18) 08/30/21 08:30 08/30/21 Creatinine 1.1 mg/dL (0.70-1.30) 08/30/21 08:30 08/30/21 Estimated GFR/1.73 m2 >= 60.00 (mL/min/1.73m2) 08/30/21 08:30 08/30/21 Calcium Level 8.9 mg/dL (8.5-10.1) 08/30/21 08:30 08/30/21 Albumin 3.8 g/dL (3.4-5.0) 08/30/21 08:30 08/30/21 Glucose Level 107 mg/dL (74-106) H 08/30/21 08:30 08/30/21 C-Reactive Protein 0.52 mg/dL (0.0-0.3) H 08/30/21 08:30 08/30/21 Liver Function Panel: Alanine Aminotransferase (ALT/SGPT) 44 U/L (16-63) 08/30/21 08:30 08/30/21 Aspartate Amino Transf (AST/SGOT) 21 U/L (15-37) 08/30/21 08:30 08/30/21 Coagulation Panel: No Data to Display Cardiac Panel: No Data to Display Arterial Blood Gas: No Data to Display Venous Blood Gas: No Data to Display Pancreas Panel: No Data to Display Thyroid Panel: No Data to Display Infectious Disease: Coronavirus (COVID-19)(PCR) Negative (Negative) 09/12/21 12:13 09/12/21 Coronavirus 2019 Source Nasal/Nares 09/12/21 12:13 09/12/21 Blood Cultures: No Data to Display Toxicology Panel: No Data to Display Anesthesia Assessment and Plan Anesthesia History Personal History: No History of Anesthesia Complications Family History: No Family History of Anesthesia Complications Exercise Tolerance Exercise Tolerance: Metabolic Equivalents>4 Pertinent Negatives Pertinent Negatives: No Symptoms of GERD, No Major Cardiovascular Symptoms or Complaints, No Major Pulmonary Symptoms or Complaints and No History of CVA/TIA Cardiac & Pulmonary Exam Cardiac Exam: Normal S1/S2 Heart Sounds Pulmonary Exam: Clear Bilateral Breath Sounds Airway Exam Known Difficult Airway: No Mallampati Class: 2 Mouth Opening: Normal (> 3cm) Thyromental Distance: Greater than 3 cm Neck Range of Motion: Full ROM Neck Circumference: Normal Teeth Condition: Loose or Chipped, Advised tooth loss possible given current condition (indicate tooth) and Removable Dentures/Plates Upper Tooth Numberin. Loose ASA Classification ASA Score: ASA 2 Emergency Case?: No NPO Status NPO Status: NPO Clears >2 hours, Solids >8 hours Anesthesia Plan Resuscitation Status: Full Code Anesthesia Technique: General Anesthesia Airway Planned: Endotracheal Tube Pain Management: Surgeon and patient request nerve block Monitors Used: Standard Monitors
[2021-09-14] MEDS: Lactated Ringers 1,000 ML 100 ML IV (07:08)
--- NOTE | 2021-09-14 07:22 | ROE_ITS ---
Date of service: 09/14/21 Time of Service: 07:30 Operative Note Operative Note DATE OF PROCEDURE: 09/14/21 PRE-OP DIAGNOSIS: Left: 1. Rotator cuff tear 2. LHB tendinopathy 3. Bursitis 4. Impingement POST-OP DIAGNOSIS: same PROCEDURE: Left: 1. Rotator cuff repair, CPT# 90519. This involved repair of the subscapularis and supraspinatus using anchors and sutures to reattach the rotator cuff back to the footprint of the lesser and greater tuberosity. 2. Arthroscopic biceps tenodesis, CPT# 80958. This involved arthroscopically suturing and reattaching the long head of the biceps tendon to the proximal humerus at the superior margin of the bicipital groove with a screw at the correct tension. 3. Extensive debridement, CPT# 17136. This involved using arthroscopic hand instruments, power instruments, and radiofrequency instruments to release the long head of the biceps tendon and debride areas of labral tearing, synovitis, and chondromalacia about the greater tuberosity within the glenohumeral joint anteriorly, superiorly and posteriorly. 4. Subacromial decompression, CPT# 08550. This involved using arthroscopic power instruments and a radiofrequency wand to complete a bursectomy. The medical laboratory assistant was medically required in order to help assist in techniques above, which require positioning the arm, holding the arthroscope, and manipulating multiple instruments and sutures at the same time. This cannot be done without the help of an experienced medical laboratory assistant. SURGEON: Charli Bruce TERRAZZO WORKER APPRENTICE: Cheko Roth Refer to Anesthesia Record ESTIMATED BLOOD LOSS: 15 PATHOLOGY: none sent COMPLICATIONS: None Patient was transported to: PACU Patient's condition: stable Implants: Arthrex: 4.75mm SwiveLocks x 2 and 3.9mm knotless Corkscrews x 2 Indications: The patient was diagnosed with the above conditions and appropriately indicated for surgical intervention. Please see complete medical record for details. Findings: Exam under anesthesia: Full range of motion, no instability Glenohumeral joint: Significant partial articular sided supraspinatus tendon tear majority of the anterior posterior margin greater than 50% of the medial lateral footprint. No full-thickness communication. Chondromalacia, bony irregularity, and posterior greater tuberosity osteophyte. Intact infraspinatus.. Upper margin subscapularis tear. Long head biceps tendinopathy. Anterior and posterior synovitis. Anterior superior and posterior mild labral fraying. Subacromial space: Moderate bursitis. No significant acromial bone spur. Intact bursal rotator cuff. Procedure Description: In the operating room, general anesthesia was induced. Bilateral shoulders were examined. The patient was positioned in the beachchair position. All bony prominences were well-padded. Preoperative antibiotics were administered. The shoulder was prepped and draped in the usual sterile fashion. The correct patient, procedure, and side of the procedure were all verified prior to incision. Starting through the posterior portal a standard complete diagnostic arthroscopy was performed of the glenohumeral joint including inspection of the long head of the biceps, anterior and superior labrum, subscapularis tendon, supraspinatus and infraspinatus tendons, and axillary recess. The glenoid and humeral head cartilage as well as the posterior labrum were inspected from an anterior viewing portal. Significant findings and interventions noted above. A rigid cannula was inserted anteriorly. An all-arthroscopic suprapectoral biceps tenodesis was performed through an anterior portal using a Loop N Tack method with a SutureTape FiberLink cinched around and through the tendon. The biceps was tenotomized from the labrum and biceps squeeze to with draw the biceps tendon stump to the top of the bicipital groove. The planned repair site for both the biceps tendon and subscapularis repair was prepared to optimize bone tendon healing. A fiber tape was then passed with a BirdBeak through the upper and lateral margin of the subscapularis about the tear. The punch was used to localize placement for a knotless swivel lock anchor. The eyelet had difficulty sliding down the cannula over the sutures and the suture anchor did not properly deployed into bone and was withdrawn. The screw came out intact and the sutures were unharmed however the plastic eyelet remained deep in the prepunched hole. It was unable to be visualized or withdrawn. Decision was made to leave it in place and not compromise repair fixation by enlarging this whole to remove it. The sutures then loaded again on a swivel lock anchor, which was easily slid down the cannula and inserted into the prepunched position with appropriate tension on both the subscapularis repair and biceps tenodesis sutures. The anchor was fully deployed with secure fixation. There were no difficulty or issues with the retained eyelet from the initial anchor. The sutures were removed and the repair sutures cut flush. The biceps was squeezed with excellent fixation strength and appropriate slight detensioning. The subscapularis repair was solid but did not restrict significant external rotation. The partial articular sided supraspinatus repair was corrected and inspected in external rotation abduction. The shaver was used to remove mild fraying on the undersurface aspect and posteriorly. The greater tuberosity footprint was prepa red to optimize healing using the shaver removing fibrinous tissue and irregular bone. The probe was used to confirm no defects through the tendon. Tear was probably about 50% thickness although extended significantly the majority of the supraspinatus from anterior to the biceps to posteriorly. A spinal needle was placed from laterally into the center of the tear site to help guide inspection of the bursal side of the tear. Starting through the posterior portal, the arthroscope was directed into the subacromial space. A lateral 50 yard line lateral portal was created. A Amber was inserted laterally. A combination of power instruments and a radiofrequency ablator were used to debride bursitis anteriorly, posteriorly, and laterally as well as expose the undersurface of the acromion. The coracoacromial ligament was preserved. The bursectomy was completed viewing laterally and working from posteriorly and the rotator cuff was thoroughly inspected with no bursal tear really at all identified. There was no significant thinning or degeneration over the localized site with a spinal needle. Decision was made to proceed with PASTA repair as opposed to takedown conversion to full-thickness and repair. The arthroscope was redirected back into the glenohumeral joint. The percutaneous kit was used with a spinal needle placed about the anterior lateral margin of the acromion through the rotator cuff tear and at the appropriate position off the medial articular margin through the anterior part of the articular tear. The night it was passed over the needle, the needle removed, a small incision made about the wire, and the small dilator passed through the tear into the appropriate position. The half pipe spear was then placed with small dilator removed and corkscrew punch localized and malleted into bone to the appropriate depth. The punch removed and corkscrew anchor deployed through the half pipe spear and secured down to bone at the appropriate anterior and medial aspect of the tear. This percutaneous process was repeated for the posterior lateral margin of the tear with an additional corkscrew anchor inserted. Camera was brought back into the subacromial space. A repair suture from the anterior anchor was then passed through the knotless mechanism of the posterior anchor using the shuttle suture and this was also done bringing the posterior repair stitch through the anterior anchor with traction placed in line laying each repair suture at this medial row from anterior posterior gently on the top of the bursal rotator cuff. The arthroscope was brought back into the glenohumeral joint while attention was secured on these repair sutures and appropriate reduction and fixation of the partial articular sided tendon avulsion down to the repaired bone footprint confirm. The sutures were final tightened without placing undue tension or shortening the supraspinatus. The camera was redirected back to the subacromial space. A lateral suture anchor site was prepared with the radiofrequency ablator. Each repair stitch was brought out laterally. The [employer] rigid insert was used to confirm appropriate location and arm position for repair. The undersized punch was used, both repair sutures passed through a 4.75 [place] SwiveLock anchor, which was secured down to bone without difficulty. Sutures were cut. The repair was inspected both in the joint and bursal he and felt to have good reduction and fixation strength. The shoulder was drained of arthroscopic fluid. All portal sites were copiously irrigated. These incisions were closed using 3-0 Monocryl in a buried fashion and then covered with Mastisol, Steri-Strips, Xeroform, dry gauze, and ABDs. The dressings were covered and secured with Medipore tape. The operative extremity was placed into a sling for immobilization. The patient awoke from anesthesia without complication and was transferred to the recovery room in a stable condition.
[2021-09-14] MEDS: ceFAZolin 2 GM/50 ML BAG IVPB (08:02)
--- NOTE | 2021-09-14 08:33 | W.ANESNERVE ---
Nerve Block Single Injection Procedure Date and Time Date Performed: 09/14/21 Procedure Start: 07:21 Location Where Procedure Performed Procedure Location: Day Surgery Unit Reason Performed: Postoperative Analgesia Requesting Provider: Charli Bruce Timeout Performed Timeout Performed: Yes Monitoring Used ECG, Blood Pressure and SpO2 Sterility Sterility: Hand Hygiene, Surgical Cap, Surgical Mask, Sterile Gloves and Chlorhexidine Sedation Given During Procedure Sedation Given (Indicate Dose Given): Versed IV Dose:: 2mg Patient Mental Status Patient Mental Status: Sedate with meaningful communication Nerve Block 1st Nerve Block: Laterality: Left Block Type: Interscalene Needle / Catheter Used: 100mm SonoPlex II Local Anesthetic Bolus (Indicate Dose Given): Lidocaine used for local infiltration of skin (2 mL), Bupivacaine 0.5% Dose:: 10 cc and Exparel Dose:: 10 cc Additives (Indicate Dose Given): Normal Saline Ultrasound: Sterile probe cover and gel used Ultrasound Image Saved?: Yes Nerve Stimulator: Not Used Paresthesia: None Procedure Tolerated: No Complications and Patient tolerated well Procedure Outcome: Successful Performed By: Audrey Barnett Supervised By: Ed Mc
--- NOTE | 2021-09-14 11:04 | W.ANESPOSTOP ---
Postoperative Evaluation Date, Time and Location Date Performed: 09/14/21 Time Performed: 10:51 Patient Location: PACU Vital Signs Most Recent Imported Vital Signs: Most Recent Vital Signs Temp Pulse Resp BP Pulse Ox 36.1 C L 63 18 105/68 97 09/14/21 10:51 09/14/21 10:51 09/14/21 10:51 09/14/21 10:51 09/14/21 10:51 Pain Score Most Recent Pain Score: Most Recent Pain Score Pain Level 0 09/14/21 10:51 Assessment Mental Status: Awake (Alert & Oriented to Patient Baseline) Airway and Respiratory Function: Patent airway with normal (patient baseline) respiratory exam Cardiovascular Function: Hemodynamically Stable Hydration Status: Adequately Hydrated Nausea & Vomiting: No Nausea or Vomiting Pain: Pain is tolerable per patient Peripheral Nerve Block: Regional nerve block not resolved at time of post operative discharge
--- NOTE | 2021-09-14 16:32 | W.PM.DSUDISC ---
Discharge Plan Disposition Patient Disposition: HOME Condition: Stable Discharge Details Reason For Visit: Left shoulder surgery Attending Provider: Charli Bruce Primary Care Provider: Bessie Aviles V Home Meds and New Rx's Prescriptions: New aspirin 81 mg tablet,delayed release (DR/EC) 81 mg PO DAILY 14 Days Qty: 14 RF: 0 oxycodone 5 mg tablet 5 - 10 mg PO Q4H PRN (Reason: moderate to severe pain) Qty: 18 RF: 0 naproxen 250 mg tablet 250 - 500 mg PO BID PRN (Reason: Moderate pain or swelling) Qty: 30 RF: 0 Continued folic acid 1 mg tablet 1 mg PO DAILY RF: 0 methotrexate sodium 10 mg tablet 35 mg PO QWEEK RF: 0 Discharge Instructions Additional Instructions: Surgery: Left shoulder arthroscopy with rotator cuff repair, biceps tenodesis, extensive debridement, and subacromial decompression. Activity: For 6 weeks, you should keep your arm at your side in a neutral position at all times except for physical therapy. Do not try to lift or raise your arm using your own muscles. You should use the sling whenever you are out of the house. You may have to adjust the abduction pillow or remove it for comfort. At home it is best to remove the sling and rest the arm on a pillow at your side or support the operative side with your other hand. You may allow the arm to dangle at your side. A physical therapy prescription will be sent electronically to begin in about 3 weeks. Prescriptions: Aspirin 81 mg take 1 daily to prevent a blood clot for 2 weeks Naproxen 250 mg take 1-2 every 12 hours with a meal as needed for moderate pain Oxycodone 5 mg take 1-2 every 4-6 hours as needed for severe pain You may use [id number] Tylenol (acetaminophen) as needed for mild pain. These pain medications may be taken all at once or in different combinations as needed. Also, recommend Colace (docusate) as a stool softener as surgery and pain medicine cause constipation. Dressings: Remove shoulder bandage after 3 days. Leave the sticky Steri-Strips in place until they fall off or remove them after you shower. Cover the incisions with Band-Aids or leave them open to air. You may shower after 5 days. Follow-up: 10-[address] Bruce You may take off the leg compression stockings this evening at home. You may also leave them on a few days longer if you have a history of leg swelling or edema. Let us know right away if you develop any redness, drainage, fevers, chest pain, or trouble breathing. Do not drink alcohol or drive for at least 24 hours after anesthesia. Please call the office during business hours with any questions or concerns. Stand Alone Forms: Anesthesia Discharge Inst., Anes.Nerve Block Instructions Referrals: Charli Bruce MD [ [facility] STAFF PHYSICIAN] - Discharge Orders Discharge Orders: Discharge Order (Routine); Ordered 09/14/21 Ordered By: Charli Bruce Discharge Data Discharge Date/Time-TO BE ENTERED AT DEPARTURE: 09/14/21 12:19 Discharge Comment: Pt belongings sent home w/ Pt. DS: Diagnosis Discharge Diagnosis (1) Left rotator cuff tear: Status: Acute (2) Tendinitis of long head of biceps brachii of left shoulder: Status: Acute (3) Bursitis of left shoulder: Status: Acute
== END 2021-09-14 12:19 | disposition home or self-care (01) ==
PROVIDERS: PCP Family Medicine; Visit Provider Student in an Organized Health Care Education/Training Program
PROC: (CPT 29827; principal; 2021-09-14 07:30)
DX: M75.102 Unspecified rotator cuff tear or rupture of left shoulder, not specified as traumatic (principal); M75.22 Bicipital tendinitis, left shoulder; M75.52 Bursitis of left shoulder
CPT/HCPCS: 29827; 29826; 29828; 29823; 76942; J0131; J0690; J1100; J2001; J2370; J2405; J2704

== ENCOUNTER 2021-09-29 01:43 | Outpatient (CLI) | payer MEDICAID, SELFPAY ==
--- NOTE | 2021-09-29 08:00 | DI.MRI_ITS ---
Exam(s) MR UPPER JOINT RT WO EXAM: MR UPPER JOINT RT WO CLINICAL HISTORY: R SHOULDER PAIN, TENDONITIS, BURSITIS, RT RTC, M75.21, M75.51, M75.101. TECHNIQUE: Multiplanar multisequence MRI was performed. COMPARISON: Plain films March 31 FINDINGS: Bones: There is no fracture or contusion pattern. Degenerative subchondral cysts are noted in the humeral he ad. The acromioclavicular joint shows mild inferior spurring but no impingement. Glenohumeral joint: Minimal amount of fluid. Rotator Cuff: There is high signal in the distal supraspinatus tendon mainly involving under surface fibers. There is a minimal amount of fluid in the subacromial subdeltoid bursa. There is some fluid seen between the supraspinatus and infraspinatus muscles in the in a small amount of fluid between the infraspinat us and teres minor muscles. Intact. The subscapularis and teres minor are normal. No muscular atr ophy. Labrum and biceps anchor: The biceps tendon is located. The anchor is well maintained. The labrum is grossly within normal limi ts. IMPRESSION: Partial articular sided tear of the supraspinatus tendon. DATA REPOSITORY:
== END 2021-09-29 02:03 ==
PROVIDERS: PCP Family Medicine; Visit Provider Student in an Organized Health Care Education/Training Program
DX: M25.511 Pain in right shoulder (principal); M75.21 Bicipital tendinitis, right shoulder; M75.51 Bursitis of right shoulder; M75.101 Unspecified rotator cuff tear or rupture of right shoulder, not specified as traumatic
CPT/HCPCS: 73221

== ENCOUNTER 2021-11-27 02:18 | Outpatient (CLI) | payer MEDICAID, SELFPAY ==
[2021-11-27 09:41] LABS: Abs Immature Grans 0.04 10^3/uL (0.0-0.06); Absolute Basophil Count 0.04 10^3/uL (0.0-0.2); Absolute Eosinophil Count 0.16 10^3/uL (0.0-0.7); Absolute Monocyte Count 1.07 10^3/uL (0.1-0.8); Absolute Neutrophil Count 8.96 10^3/uL (1.2-6.7); Basophils % 0.3; Eosinophils % 1.3; HCT 44.2 % (40.0-50.0); HGB 14.7 g/dL (13.5-17.5); Immature Grans % 0.3; Lymphocytes % 14.9; MCH 31.5 pg (27.0-33.0); MCHC 33.3 % (32.0-36.0); MCV 94.6 fL (80-95); MPV 9.3 fL (8.0-11.0); Monocytes % 8.9; Neutrophils % 74.3; Nucleated RBC 0 %; Platelet Count 357 10^3/uL (130-400); RBC 4.67 10^6/uL (4.36-5.78); RDW 13.5 % (11.8-14.1); RDW-SD 47.3 fL; WBC 12.06 10^3/uL (4.4-10.8)
[2021-11-27 11:21] LABS: ALT 61 U/L (16-63); AST 26 U/L (15-37); Albumin 3.8 g/dL (3.4-5.0); Alkaline Phosphatase 128 U/L (46-116); Anion Gap 8.7 mmol/L (3-11); BUN 14 mg/dL (7-18); Bilirubin, Total 0.4 mg/dL (0.2-1.0); C-Reactive Protein 0.65 mg/dL (0.0-0.3); CO2 29.3 mmol/L (21.0-32.0); CREATININE 1.1 mg/dL (0.70-1.30); Calcium 8.6 mg/dL (8.5-10.1); Chloride 102 mmol/L (98-107); Glucose 105 mg/dL (74-106); Potassium 3.5 mmol/L (3.5-5.1); Sodium 140 mmol/L (136-145); Total Protein 6.8 g/dL (6.4-8.2)
== END 2021-11-27 02:19 | disposition home or self-care (01) ==
LOC: LBO 02:18
PROVIDERS: PCP Family Medicine; Visit Provider Internal Medicine Rheumatology
DX: M05.79 Rheumatoid arthritis with rheumatoid factor of multiple sites without organ or systems involvement (principal); M35.3 Polymyalgia rheumatica
CPT/HCPCS: 36415; 80053; 85025; 86140

== ENCOUNTER 2022-03-01 02:29 | Outpatient (CLI) | payer MEDICAID, SELFPAY ==
[2022-03-01 12:20] LABS: Abs Immature Grans 0.04 10^3/uL (0.0-0.06); Absolute Basophil Count 0.07 10^3/uL (0.0-0.2); Absolute Eosinophil Count 0.19 10^3/uL (0.0-0.7); Absolute Lymphocyte Count 2.04 10^3/uL (1.2-3.4); Absolute Monocyte Count 0.92 10^3/uL (0.1-0.8); Absolute Neutrophil Count 6.16 10^3/uL (1.2-6.7); Basophils % 0.7; HGB 14.1 g/dL (13.5-17.5); Immature Grans % 0.4; Lymphocytes % 21.7; MCH 31.3 pg (27.0-33.0); MCHC 32.8 % (32.0-36.0); MCV 95.6 fL (80-95); MPV 9.4 fL (8.0-11.0); Monocytes % 9.8; Neutrophils % 65.4; Platelet Count 349 10^3/uL (130-400); RDW 13.3 % (11.8-14.1); WBC 9.42 10^3/uL (4.4-10.8)
[2022-03-01 13:31] LABS: ALT 69 U/L (16-63); AST 27 U/L (15-37); Albumin 3.8 g/dL (3.4-5.0); Alkaline Phosphatase 114 U/L (46-116); Anion Gap 3.6 mmol/L (3-11); BUN 12 mg/dL (7-18); Bilirubin, Total 0.5 mg/dL (0.2-1.0); CO2 29.4 mmol/L (21.0-32.0); Calcium 9.2 mg/dL (8.5-10.1); Chloride 106 mmol/L (98-107); Glucose 101 mg/dL (74-106); Potassium 4.7 mmol/L (3.5-5.1); Sodium 139 mmol/L (136-145); Total Protein 6.7 g/dL (6.4-8.2)
[2022-03-01 13:35] LABS: Calculated LDL 189 mg/dL (<100); Cholesterol 252 mg/dL (<200); HDL Cholesterol 49 mg/dL (40-60); Triglyceride 71 mg/dL (<150)
[2022-03-01 23:04] LABS: PSA, Screening 0.7 ng/mL (<=4.5)
== END 2022-03-01 02:30 | disposition home or self-care (01) ==
LOC: LBO 02:29
PROVIDERS: Internal Medicine Rheumatology; PCP Family Medicine; Visit Provider Family Medicine
DX: Z12.5 Encounter for screening for malignant neoplasm of prostate (principal); Z13.220 Encounter for screening for lipoid disorders; Z00.00 Encounter for general adult medical examination without abnormal findings; M35.3 Polymyalgia rheumatica; M05.79 Rheumatoid arthritis with rheumatoid factor of multiple sites without organ or systems involvement
CPT/HCPCS: 36415; 80053; 80061; 84153; 85025; 86140

== ENCOUNTER 2022-04-16 03:42 | Outpatient (CLI) | payer MEDICAID, SELFPAY ==
[2022-04-16 15:12] LABS: Abs Immature Grans 0.03 10^3/uL (0.0-0.06); Absolute Basophil Count 0.05 10^3/uL (0.0-0.2); Absolute Eosinophil Count 0.21 10^3/uL (0.0-0.7); Absolute Lymphocyte Count 1.91 10^3/uL (1.2-3.4); Absolute Monocyte Count 0.89 10^3/uL (0.1-0.8); Absolute Neutrophil Count 7.21 10^3/uL (1.2-6.7); Basophils % 0.5; HGB 14.2 g/dL (13.5-17.5); Immature Grans % 0.3; Lymphocytes % 18.5; MCH 31.8 pg (27.0-33.0); MCHC 33.8 % (32.0-36.0); MCV 94 fL (80-95); MPV 9.6 fL (8.0-11.0); Monocytes % 8.6; Neutrophils % 70.1; Platelet Count 327 10^3/uL (130-400); RBC 4.46 10^6/uL (4.36-5.78); RDW 12.9 % (11.8-14.1); RDW-SD 44.4 fL
[2022-04-16 17:06] LABS: ALT 40 U/L (16-63); AST 23 U/L (15-37); Albumin 3.7 g/dL (3.4-5.0); Alkaline Phosphatase 119 U/L (46-116); Anion Gap 10.1 mmol/L (3-11); BUN 12 mg/dL (7-18); Bilirubin, Total 0.4 mg/dL (0.2-1.0); CO2 25.9 mmol/L (21.0-32.0); CREATININE 1.1 mg/dL (0.70-1.30); Calcium 8.6 mg/dL (8.5-10.1); Calculated LDL 96 mg/dL (<100); Chloride 107 mmol/L (98-107); Cholesterol 148 mg/dL (<200); Creatine Kinase 197 U/L (39-308); Glucose 86 mg/dL (74-106); HDL Cholesterol 43 mg/dL (40-60); Potassium 4.3 mmol/L (3.5-5.1); Sodium 143 mmol/L (136-145); Total Protein 6.5 g/dL (6.4-8.2); Triglyceride 48 mg/dL (<150)
[2022-04-16 17:17] LABS: C-Reactive Protein 0.55 mg/dL (0.0-0.3)
== END 2022-04-16 03:43 | disposition home or self-care (01) ==
LOC: LBO 03:42
PROVIDERS: PCP Family Medicine; Visit Provider Family Medicine
DX: E78.5 Hyperlipidemia, unspecified (principal); M05.79 Rheumatoid arthritis with rheumatoid factor of multiple sites without organ or systems involvement; M35.3 Polymyalgia rheumatica
CPT/HCPCS: 36415; 80053; 80061; 82550; 85025; 86140

== ENCOUNTER → 2022-06-18 02:33 | Outpatient (CLI) | payer MEDICAID, SELFPAY ==
--- NOTE | 2022-06-18 | DI.MRI_ITS ---
Exam(s) MR UPPER JOINT LT WO EXAM: MR UPPER JOINT LT WO CLINICAL HISTORY: RA, M06.9, CHRONIC PAIN, M25.512, TRAUMATIC RTC TEAR, S46.012A, PMR, M35.3 TECHNIQUE: Multiplanar multisequence MRI of the shoulder was performed. COMPARISON: MR MR UPPER JOINT LT WO from 12/29/2019 CR XR SHOULDER RT COMPLETE 2+V from 04/03/2021 CR XR SHOULDER LT COMPLETE 2+V from 04/03/2021 MR MR UPPER JOINT RT WO from 09/29/2021 FINDINGS: Compared to the MRI scan of 12/29/2019 there has been interval rotator cuff surgery. Fastener device s are noted MARROW:There is no evidence of fracture, Hill-Sachs deformity, nor ominous osseous lesions. ROTATOR CUFF MECHANISM: AC JOINT/ACROMIUM: Moderate degenerative changes.. There is no evidence of os acromiale. Supraspinatus: There is attenuation of the supraspinatus tendon with what appears to be multifocal pa rtial tearing (articular surface side). Anteriorly there is an area in the most anterior fibers of t he supraspinatus suspicious for full-thickness tearing and there is fluid in the subacromial bursa. Mild atrophy Infraspinatus: Intact. No evidence of tear nor muscle atrophy. Teres Minor: Intact. No evidence of tear nor muscle atrophy. Subscapularis/anterior cuff: Intact. No abnormal signal at the level of the multipennate insertional fibers. No significant tear nor atrophy. BICEPS TENDON: There appears to have been tenodesis at the mid humeral head level. Some split tearing of the tendon is seen in the intertubercular groove LABRUM: There is some regularity and fluid inter position in the superior labrum consistent with prob able element of tearing. The posterior labrum appears intact there appears to be some and anterior l abral tearing. Inferior labrum intact. Inferior glenohumeral ligament appears intact. GLENOHUMERAL JOINT: Mild degenerative changes. Some cartilage loss. No degenerative subarticular cy sts. No loose intra-articular bodies. No glenohumeral joint effusion. No evidence of capsular tear . QUADRILATERAL SPACE: No evidence of mass in the region of the axillary nerve and dorsal circumflex hu meral vessels. Visualized triceps muscle at this level appears unremarkable. IMPRESSION: 1. Evidence of prior rotator cuff repair and biceps tenodesis. 2. There appears to be multifocal partial and small area of full-thickness tearing in the supraspinat us. No obvious retraction of the musculotendinous junction. 3. Some split tearing of the biceps tendon is noted within the intertubercular groove but the biceps does appear continuous up to the tenodesis fastener device. 4. Some tearing is evident in the superior and anterior labrum. There is no evidence of paralabral cyst(s). Mild-moderate degenerative changes in the glenohumeral joint. DATA REPOSITORY:
== END ==
PROVIDERS: PCP Family Medicine; Visit Provider Specialist/Technologist Athletic Trainer
DX: S46.212A Strain of muscle, fascia and tendon of other parts of biceps, left arm, initial encounter (principal); S43.432A Superior glenoid labrum lesion of left shoulder, initial encounter; M75.102 Unspecified rotator cuff tear or rupture of left shoulder, not specified as traumatic; M19.012 Primary osteoarthritis, left shoulder; X58.XXXA Exposure to other specified factors, initial encounter
CPT/HCPCS: 73221

== ENCOUNTER 2022-07-02 03:55 | Outpatient (CLI) | payer MEDICAID, SELFPAY ==
[2022-07-02 08:12] LABS: Abs Immature Grans 0.06 10^3/uL (0.0-0.06); Absolute Basophil Count 0.06 10^3/uL (0.0-0.2); Absolute Eosinophil Count 0.15 10^3/uL (0.0-0.7); Absolute Monocyte Count 1.05 10^3/uL (0.1-0.8); Absolute Neutrophil Count 6.62 10^3/uL (1.2-6.7); Basophils % 0.6; Eosinophils % 1.5; HCT 42.2 % (40.0-50.0); HGB 14.2 g/dL (13.5-17.5); Immature Grans % 0.6; Lymphocytes % 18.5; MCH 31.6 pg (27.0-33.0); MCHC 33.6 % (32.0-36.0); MCV 94 fL (80-95); MPV 9.4 fL (8.0-11.0); Monocytes % 10.8; Platelet Count 317 10^3/uL (130-400); RDW 13.2 % (11.8-14.1); RDW-SD 45.2 fL; WBC 9.74 10^3/uL (4.4-10.8)
[2022-07-02 08:58] LABS: ALT 41 U/L (16-63); AST 18 U/L (15-37); Albumin 3.4 g/dL (3.4-5.0); Alkaline Phosphatase 105 U/L (46-116); BUN 12 mg/dL (7-18); Bilirubin, Total 0.4 mg/dL (0.2-1.0); C-Reactive Protein 0.19 mg/dL (0.0-0.3); CREATININE 1.1 mg/dL (0.70-1.30); Calcium 8.6 mg/dL (8.5-10.1); Chloride 107 mmol/L (98-107); Glucose 87 mg/dL (74-106); Potassium 4.2 mmol/L (3.5-5.1); Sodium 143 mmol/L (136-145); Total Protein 6.8 g/dL (6.4-8.2)
== END 2022-07-02 03:56 | disposition home or self-care (01) ==
LOC: LBO 03:56
PROVIDERS: PCP Family Medicine; Visit Provider Internal Medicine Rheumatology
DX: M05.79 Rheumatoid arthritis with rheumatoid factor of multiple sites without organ or systems involvement (principal)
CPT/HCPCS: 36415; 80053; 85025; 86140

== ENCOUNTER 2022-09-18 03:28 | Outpatient (CLI) | payer MEDICARE, MEDICAID, SELFPAY ==
[2022-09-18 09:50] LABS: Abs Immature Grans 0.05 10^3/uL (0.0-0.06); Absolute Basophil Count 0.06 10^3/uL (0.0-0.2); Absolute Lymphocyte Count 1.93 10^3/uL (1.2-3.4); Absolute Monocyte Count 0.98 10^3/uL (0.1-0.8); Absolute Neutrophil Count 6.81 10^3/uL (1.2-6.7); Basophils % 0.6; HCT 43.9 % (40.0-50.0); HGB 14.9 g/dL (13.5-17.5); Immature Grans % 0.5; Lymphocytes % 19.2; MCHC 33.9 % (32.0-36.0); MCV 94 fL (80-95); MPV 9.3 fL (8.0-11.0); Monocytes % 9.8; Neutrophils % 67.9; Platelet Count 333 10^3/uL (130-400); RBC 4.66 10^6/uL (4.36-5.78); RDW 13.1 % (11.8-14.1); WBC 10.03 10^3/uL (4.4-10.8)
[2022-09-18 10:15] LABS: ALT 60 U/L (16-63); AST 31 U/L (15-37); Albumin 3.8 g/dL (3.4-5.0); Alkaline Phosphatase 117 U/L (46-116); Anion Gap 5.2 mmol/L (3-11); BUN 13 mg/dL (7-18); Bilirubin, Total 0.7 mg/dL (0.2-1.0); C-Reactive Protein 0.23 mg/dL (0.0-0.3); CO2 29.8 mmol/L (21.0-32.0); CREATININE 1.2 mg/dL (0.70-1.30); Calcium 9.3 mg/dL (8.5-10.1); Chloride 106 mmol/L (98-107); Estimated GFR 67.53 (mL/min/1.73m2); Glucose 107 mg/dL (74-106); Potassium 4.6 mmol/L (3.5-5.1); Sodium 141 mmol/L (136-145); Total Protein 7.2 g/dL (6.4-8.2)
== END 2022-09-18 03:29 | disposition home or self-care (01) ==
LOC: LBO 03:28
PROVIDERS: PCP Family Medicine; Visit Provider Internal Medicine Rheumatology
DX: M75.102 Unspecified rotator cuff tear or rupture of left shoulder, not specified as traumatic (principal); E78.5 Hyperlipidemia, unspecified
CPT/HCPCS: 36415; 80053; 85025; 86140

== ENCOUNTER 2022-12-25 02:29 | Outpatient (CLI) | payer MEDICARE, MEDICAID, SELFPAY ==
[2022-12-25 11:09] LABS: Abs Immature Grans 0.06 10^3/uL (0.0-0.06); Absolute Basophil Count 0.06 10^3/uL (0.0-0.2); Absolute Eosinophil Count 0.25 10^3/uL (0.0-0.7); Absolute Lymphocyte Count 1.97 10^3/uL (1.2-3.4); Absolute Monocyte Count 0.72 10^3/uL (0.1-0.8); Absolute Neutrophil Count 6.62 10^3/uL (1.2-6.7); Basophils % 0.6; Eosinophils % 2.6; HCT 44.3 % (40.0-50.0); HGB 14.7 g/dL (13.5-17.5); Immature Grans % 0.6; Lymphocytes % 20.4; MCH 31.9 pg (27.0-33.0); MCHC 33.2 % (32.0-36.0); MCV 96 fL (80-95); MPV 9.2 fL (8.0-11.0); Monocytes % 7.4; Neutrophils % 68.4; Platelet Count 341 10^3/uL (130-400); RBC 4.61 10^6/uL (4.36-5.78); RDW 14.2 % (11.8-14.1); RDW-SD 50.2 fL; WBC 9.68 10^3/uL (4.4-10.8)
[2022-12-25 11:50] LABS: ALT 59 U/L (16-63); AST 30 U/L (15-37); Albumin 3.7 g/dL (3.4-5.0); Alkaline Phosphatase 116 U/L (46-116); BUN 14 mg/dL (7-18); Bilirubin, Total 0.6 mg/dL (0.2-1.0); C-Reactive Protein 0.12 mg/dL (0.0-0.3); CREATININE 1.2 mg/dL (0.70-1.30); Calcium 9.5 mg/dL (8.5-10.1); Chloride 104 mmol/L (98-107); Estimated GFR 67.53 (mL/min/1.73m2); Glucose 123 mg/dL (74-106); Potassium 3.9 mmol/L (3.5-5.1); Sodium 140 mmol/L (136-145); Uric Acid 4.6 mg/dL (3.5-7.2)
[2022-12-26 10:59] LABS: Lyme Ab w Rflx to Lyme Confirm Negative (Negative)
== END 2022-12-25 02:30 | disposition home or self-care (01) ==
LOC: LBO 02:29
PROVIDERS: PCP Family Medicine; Visit Provider Internal Medicine Rheumatology
DX: M25.461 Effusion, right knee; M25.462 Effusion, left knee; M05.79 Rheumatoid arthritis with rheumatoid factor of multiple sites without organ or systems involvement; M35.3 Polymyalgia rheumatica
CPT/HCPCS: 36415; 80053; 84550; 85025; 86140; 86618

== ENCOUNTER 2023-02-15 03:31 | Outpatient (CLI) | payer MEDICARE, MEDICAID, SELFPAY ==
[2023-02-15 12:01] LABS: Uric Acid 4.8 mg/dL (3.5-7.2)
[2023-02-18 10:24] LABS: Lyme Ab w Rflx to Lyme Confirm Negative (Negative)
== END 2023-02-15 03:32 | disposition home or self-care (01) ==
LOC: LBO 03:32
PROVIDERS: PCP Family Medicine; Visit Provider Internal Medicine Rheumatology
DX: M25.461 Effusion, right knee (principal); M25.462 Effusion, left knee
CPT/HCPCS: 36415; 80053; 84550; 85025; 86140; 86618

== ENCOUNTER 2023-04-19 00:59 | Outpatient (CLI) | payer MEDICARE, MEDICAID, SELFPAY ==
[2023-04-19 12:45] LABS: Abs Immature Grans 0.03 10^3/uL (0.0-0.06); Absolute Basophil Count 0.05 10^3/uL (0.0-0.2); Absolute Eosinophil Count 0.14 10^3/uL (0.0-0.7); Absolute Lymphocyte Count 1.73 10^3/uL (1.2-3.4); Absolute Neutrophil Count 5.47 10^3/uL (1.2-6.7); Basophils % 0.6; Eosinophils % 1.7; HCT 44.7 % (40.0-50.0); HGB 14.9 g/dL (13.5-17.5); Immature Grans % 0.4; Lymphocytes % 20.5; MCH 31.8 pg (27.0-33.0); MCHC 33.3 % (32.0-36.0); MCV 96 fL (80-95); MPV 10.3 fL (8.0-11.0); Monocytes % 11.9; Neutrophils % 64.9; Platelet Count 347 10^3/uL (130-400); RBC 4.68 10^6/uL (4.36-5.78); RDW 13.2 % (11.8-14.1); RDW-SD 46.6 fL; WBC 8.42 10^3/uL (4.4-10.8)
[2023-04-19 13:28] LABS: ALT 37 U/L (16-63); AST 22 U/L (15-37); Albumin 3.7 g/dL (3.4-5.0); Alkaline Phosphatase 108 U/L (46-116); Anion Gap 3.7 mmol/L (3-11); BUN 12 mg/dL (7-18); Bilirubin, Total 0.4 mg/dL (0.2-1.0); C-Reactive Protein 0.18 mg/dL (0.0-0.3); CO2 31.3 mmol/L (21.0-32.0); CREATININE 1.1 mg/dL (0.70-1.30); Chloride 105 mmol/L (98-107); Glucose 91 mg/dL (74-106); Potassium 4.1 mmol/L (3.5-5.1); Sodium 140 mmol/L (136-145)
[2023-04-19 13:42] LABS: Calculated LDL 119 mg/dL (<100); Cholesterol 188 mg/dL (<200); HDL Cholesterol 54 mg/dL (40-60); Triglyceride 76 mg/dL (<150)
== END 2023-04-19 01:00 | disposition home or self-care (01) ==
LOC: LOS 00:59
PROVIDERS: PCP Family Medicine; Visit Provider Internal Medicine Rheumatology
DX: M05.79 Rheumatoid arthritis with rheumatoid factor of multiple sites without organ or systems involvement (principal); Z79.899 Other long term (current) drug therapy; E78.5 Hyperlipidemia, unspecified
CPT/HCPCS: 36415; 80053; 80061; 85025; 86140

== ENCOUNTER 2023-08-07 02:50 | Outpatient (CLI) | payer MEDICARE, SELFPAY ==
[2023-08-07 13:20] LABS: Abs Immature Grans 0.02 10^3/uL (0.0-0.06); Absolute Basophil Count 0.06 10^3/uL (0.0-0.2); Absolute Eosinophil Count 0.25 10^3/uL (0.0-0.7); Absolute Lymphocyte Count 2.05 10^3/uL (1.2-3.4); Absolute Monocyte Count 0.78 10^3/uL (0.1-0.8); Absolute Neutrophil Count 5.54 10^3/uL (1.2-6.7); Basophils % 0.7; Eosinophils % 2.9; HCT 43.4 % (40.0-50.0); HGB 14.7 g/dL (13.5-17.5); Immature Grans % 0.2; Lymphocytes % 23.6; MCH 31.1 pg (27.0-33.0); MCHC 33.9 % (32.0-36.0); MCV 92 fL (80-95); MPV 9.2 fL (8.0-11.0); Neutrophils % 63.6; Platelet Count 337 10^3/uL (130-400); RBC 4.72 10^6/uL (4.36-5.78); RDW 13.1 % (11.8-14.1)
[2023-08-07 14:03] LABS: ALT 34 U/L (16-63); AST 22 U/L (15-37); Albumin 3.6 g/dL (3.4-5.0); Alkaline Phosphatase 111 U/L (46-116); Anion Gap 5.7 mmol/L (3-11); BUN 16 mg/dL (7-18); Bilirubin, Total 0.3 mg/dL (0.2-1.0); C-Reactive Protein 0.42 mg/dL (0.0-0.3); CO2 28.3 mmol/L (21.0-32.0); CREATININE 1.3 mg/dL (0.70-1.30); Calcium 9.2 mg/dL (8.5-10.1); Calculated LDL 145 mg/dL (<100); Chloride 104 mmol/L (98-107); Cholesterol 207 mg/dL (<200); Estimated GFR 60.96 (mL/min/1.73m2); Glucose 113 mg/dL (74-106); HDL Cholesterol 46 mg/dL (40-60); Potassium 4.2 mmol/L (3.5-5.1); Sodium 138 mmol/L (136-145); Total Protein 7.2 g/dL (6.4-8.2); Triglyceride 83 mg/dL (<150)
== END 2023-08-07 02:51 | disposition home or self-care (01) ==
LOC: LBO 02:50
PROVIDERS: PCP Family Medicine; Visit Provider Internal Medicine Rheumatology
DX: M05.79 Rheumatoid arthritis with rheumatoid factor of multiple sites without organ or systems involvement (principal); Z79.899 Other long term (current) drug therapy; R79.82 Elevated C-reactive protein (CRP)
CPT/HCPCS: 36415; 80053; 80061; 85025; 86140

== ENCOUNTER → 2023-09-19 12:49 | Outpatient (CLI) | payer MEDICARE, SELFPAY ==
--- NOTE | 2023-09-19 12:03 | DI.RAD_ITS ---
Exam(s) XR CHEST 2V PA LATERAL EXAM: XR CHEST 2V PA LATERAL CLINICAL HISTORY: SMOKER F17.210 ABNL FINDINGS EKG R94.31 TECHNIQUE: 2D digital imaging was performed. COMPARISON: CR XR RIBS LT PA CHEST 3V from 11/24/2019 FINDINGS: HEART: Normal size. Aorta: Not dilated. PULMONARY VASCULATURE: Normal. LUNGS: fibrotic changes, greatest at the left lower lobe. Similar to prior. No acute infiltrate. PLEURAL SPACE: No pleural effusion or pneumothorax. BONE:Unremarkable for age. IMPRESSION: Fibrotic changes. DATA REPOSITORY: RADIATION DOSE DELIVERED:
== END ==
PROVIDERS: PCP Family Medicine; Visit Provider Family Medicine
DX: F17.210 Nicotine dependence, cigarettes, uncomplicated (principal); M06.9 Rheumatoid arthritis, unspecified; R94.31 Abnormal electrocardiogram [ECG] [EKG]
CPT/HCPCS: 71046

== ENCOUNTER → 2023-10-07 01:04 | Outpatient (CLI) | payer MEDICARE, SELFPAY ==
--- NOTE | 2023-10-07 14:20 | DI.CT_ITS ---
Exam(s) CT CHEST HIGH RESOLUTION EXAM: CT CHEST HIGH RESOLUTION CLINICAL HISTORY: FIBROSIS OF LUNGS, J84.10, ASBESTOS EXPOSURE, Z77.090, VARIETY EXPOSURES. TECHNIQUE: Imaging protocol: Axial computed tomography images were obtained and coronal and sagittal reformatted images were created and reviewed. COMPARISON: CR XR CHEST 2V PA LATERAL from 09/19/2023 FINDINGS: Tracheobronchial tree: Patent where visualized. Pulmonary parenchyma: No consolidation or dominant measurable mass. There is moderate pulmonary fibro sis most marked in the left lower lobe. No focal consolidating infiltrates are seen. No pulmonary n odules are present. Moderate centrilobular emphysematous changes are present. Mediastinum and Tana: No dominant adenopathy or fluid collection. The esophagus is unremarkable. Thyroid gland: Unremarkable. Pleura: No effusion or pneumothorax. Heart: The heart is not dilated. Mild coronary artery calcification is present. No pericardial effus ion. Aorta: Thoracic aorta non-dilated. Atherosclerosis. Upper abdomen: There is a 1.1 cm hypodensity in the left lobe of the liver. Lymph nodes: Within normal limits. Soft tissues: Unremarkable. Bones:Within normal limits for the patient's age. IMPRESSION: 1. Moderate pulmonary fibrosis. 2. Moderate centrilobular emphysema. 3. 1.1 cm hypodensity in the left lobe of the liver. This may represent a cyst. Correlation with ab dominal ultrasound or MRI of the liver is recommended. Unexpected findings RADIATION DOSE DELIVERED: Total DLP Total DLP DATA REPOSITORY: All CT scans at this facility are submitted to the National Radiology Data Registry (NRDR) Dose Index Registry (DIR) with the [employer] (ACR). RADIATION OPTIMIZATION: All CT scans at this facility use at least one of these dose optimization te chniques: automated exposure control; mA and/or kV adjustment per patient size (includes targeted exa ms where dose is matched to clinical indication); or iterative reconstruction.
== END ==
PROVIDERS: PCP Family Medicine; Visit Provider Family Medicine
DX: J84.10 Pulmonary fibrosis, unspecified (principal); Z77.090 Contact with and (suspected) exposure to asbestos; K76.89 Other specified diseases of liver
CPT/HCPCS: 71250

== ENCOUNTER → 2023-10-10 00:49 | Outpatient (CLI) | payer MEDICARE, SELFPAY ==
--- NOTE | 2023-10-10 | DI.US_ITS ---
Exam(s) US ABDOMEN LIMITED EXAM: US ABDOMEN LIMITED CLINICAL HISTORY: DISEASE OF LIVER,K76.89 TECHNIQUE: Ultrasound abdomen performed using standard protocol. COMPARISON: US US OR ANESTHESIA from 09/14/[address] CHEST HIGH RESOLUTION from 10/07/2023 FINDINGS: There is no ascites evident. LIVER: Liver is hyperechoic, indicating steatosis. There is a 1.1 x 1.0 cm benign cyst, correspondin g to the finding in the left lobe on the recent CT scan. GALLBLADDER/BILIARY: There are no gallstones. No gallbladder wall edema nor pericholecystic fluid. The common hepatic duct isnot able to be identified due to bowel gas.,. However, it was not dilated as seen on the lower most images of chest CT scan of 10/07/2023. PANCREAS: There is no evidence of pancreatic mass nor dilatation of the pancreatic duct. RIGHT KIDNEY:No evidence of solid mass, calculus, nor hydronephrosis. No cortical cysts evident. IMPRESSION: 1. No evidence of cholelithiasis nor significant dilatation of the biliary tree. 2. Benign 11 x 10 mm cyst in the liver corresponding to the finding in the liver on the recent nonin fused CT scan. 3. No other right upper quadrant ultrasound findings and there is no ascites DATA REPOSITORY:
== END ==
PROVIDERS: PCP Family Medicine; Visit Provider Family Medicine
DX: K76.89 Other specified diseases of liver (principal)
CPT/HCPCS: 76705

== ENCOUNTER 2023-10-11 02:47 | Outpatient (CLI) | payer MEDICARE, SELFPAY ==
[2023-10-11] MEDS: Levalbuterol HFA 15 GM INH 4 PUFF IH (09:04)
[2023-10-11] MEDS: Inhaler, Assist Device 1 EACH MC (09:04)
--- NOTE | 2023-10-11 12:08 | W.PFT ---
Date of service: 10/11/23 Time of Service: 08:01 Pulmonary Function Test Result Indications: Pulmonary fibrosis Interpretation Spirometry: There is no airflow limitation. No bronchodilator response. Lung Volumes: Normal lung volumes Diffusion Capacity: Decreased diffusion Airway Pressure: Normal airways resistance Impression Isolated diffusion deficit. This could represent ILD, emphysema or pulmonary vascular disease. Clinical Correlation therefore is recommended.
== END 2023-10-11 02:48 | disposition home or self-care (01) ==
LOC: RT 02:48
PROVIDERS: PCP Family Medicine; Visit Provider Student in an Organized Health Care Education/Training Program
DX: J84.10 Pulmonary fibrosis, unspecified (principal)
CPT/HCPCS: 94060; 94726; 94729

== ENCOUNTER → 2023-10-22 00:47 | Outpatient (CLI) | payer MEDICARE, SELFPAY | PROVIDERS: PCP Family Medicine; Visit Provider Family Medicine | DX: R94.31 Abnormal electrocardiogram [ECG] [EKG] (principal) | CPT/HCPCS: 93306 ==

== ENCOUNTER 2023-11-27 02:43 | Outpatient (CLI) | payer MEDICARE, SELFPAY ==
[2023-11-27 12:17] LABS: HCT 44.4 % (40.0-50.0); HGB 14.7 g/dL (13.5-17.5); MCH 31.2 pg (27.0-33.0); MCHC 33.1 % (32.0-36.0); MCV 94 fL (80-95); MPV 10.2 fL (8.0-11.0); Platelet Count 366 10^3/uL (130-400); RBC 4.71 10^6/uL (4.36-5.78); RDW-SD 44.7 fL; WBC 9.54 10^3/uL (4.4-10.8)
[2023-11-27 12:39] LABS: ALT 45 U/L (16-63); AST 25 U/L (15-37); Albumin 3.7 g/dL (3.4-5.0); Alkaline Phosphatase 90 U/L (46-116); Anion Gap 3.8 mmol/L (3-11); BUN 16 mg/dL (7-18); Bilirubin, Total 0.4 mg/dL (0.2-1.0); CO2 30.2 mmol/L (21.0-32.0); CREATININE 1.2 mg/dL (0.70-1.30); Calcium 9.3 mg/dL (8.5-10.1); Calculated LDL 134 mg/dL (<100); Chloride 105 mmol/L (98-107); Cholesterol 196 mg/dL (<200); Estimated GFR 67.11 (mL/min/1.73m2); Glucose 104 mg/dL (74-106); HDL Cholesterol 54 mg/dL (40-60); Potassium 4.6 mmol/L (3.5-5.1); Sodium 139 mmol/L (136-145); Total Protein 7.3 g/dL (6.4-8.2); Triglyceride 44 mg/dL (<150)
[2023-11-27 12:58] LABS: C-Reactive Protein 0.39 mg/dL (0.0-0.3)
== END 2023-11-27 02:44 | disposition home or self-care (01) ==
LOC: LOS 02:43
PROVIDERS: PCP Family Medicine; Visit Provider Family Medicine
DX: E78.5 Hyperlipidemia, unspecified (principal)
CPT/HCPCS: 36415; 80053; 80061; 85027; 86140

== ENCOUNTER → 2023-12-24 09:02 | Outpatient (BNVA) | payer MEDICARE, SELFPAY | PROVIDERS: PCP Family Medicine; Referring Provider Family Medicine; Visit Provider Student in an Organized Health Care Education/Training Program | DX: J84.9 Interstitial pulmonary disease, unspecified (principal); M06.9 Rheumatoid arthritis, unspecified | CPT/HCPCS: 99215 ==

== ENCOUNTER 2024-01-03 01:43 | Outpatient (CLI) | payer MEDICARE, SELFPAY ==
[2024-01-03 15:05] LABS: Prothrombin Time 10.3 sec (9.1-11.1)
== END 2024-01-03 01:44 | disposition home or self-care (01) ==
LOC: LBO 01:43
PROVIDERS: PCP Family Medicine; Visit Provider Student in an Organized Health Care Education/Training Program
DX: Z51.81 Encounter for therapeutic drug level monitoring (principal)
CPT/HCPCS: 36415; 85610

== ENCOUNTER 2024-01-16 15:39 | Outpatient (REF) | payer MEDICARE, SELFPAY ==
[2024-01-16 18:43] LABS: ESR 20 mm/hr (0-20)
[2024-01-16 19:13] LABS: Calculated LDL 141 mg/dL (<100); Cholesterol 207 mg/dL (<200); HDL Cholesterol 57 mg/dL (40-60); Triglyceride 47 mg/dL (<150)
[2024-01-16 19:35] LABS: C-Reactive Protein < 0.50 mg/dL (<or=0.5)
[2024-01-17 19:05] LABS: PSA, Diagnostic 0.7 ng/mL (<=4.5)
== END 2024-01-16 15:40 | disposition home or self-care (01) ==
LOC: NCHCN 15:39
PROVIDERS: PCP Family Medicine; Visit Provider Family Medicine
DX: M06.9 Rheumatoid arthritis, unspecified (principal); Z00.00 Encounter for general adult medical examination without abnormal findings
CPT/HCPCS: 80061; 85652; 84153; 86140

== ENCOUNTER 2024-02-07 02:21 | Outpatient (CLI) | payer MEDICARE, SELFPAY ==
[2024-02-07 14:14] LABS: ALT 66 U/L (16-63); AST 46 U/L (15-37); Albumin 3.6 g/dL (3.4-5.0); Alkaline Phosphatase 106 U/L (46-116); BUN 12 mg/dL (7-18); Bilirubin, Total 0.6 mg/dL (0.2-1.0); Calcium 8.8 mg/dL (8.5-10.1); Chloride 106 mmol/L (98-107); Estimated GFR 83.52 (mL/min/1.73m2); Glucose 98 mg/dL (74-106); Sodium 143 mmol/L (136-145); Total Protein 7.2 g/dL (6.4-8.2)
== END 2024-02-07 02:22 | disposition home or self-care (01) ==
LOC: LBO 02:21
PROVIDERS: PCP Family Medicine; Visit Provider Student in an Organized Health Care Education/Training Program
DX: J84.9 Interstitial pulmonary disease, unspecified (principal)
CPT/HCPCS: 36415; 80053

== ENCOUNTER 2024-02-11 05:18 | Outpatient (CLI) | payer MEDICARE, SELFPAY ==
--- NOTE | 2024-03-13 14:21 | TELEFU_ITS ---
Date of service: 02/11/24 Time of Service: 10:00 Nutrition Note NOTE: Karthikeyan in for nutrition appt - referred for management of HLD. His recent diet changes should help with his cholesterol profile - he reports decreased meat and processed food noting decrease in deli meats, and more brandi ads, sweet potatoes. Has been drinking mendoza, tumeric and peppermint tea. takes vitamin C, folic acid, and b-complex. Reviewed that for improvements in cholesterol, best advice would be to sub plant protein for animal as much as he can enjoy (whole soy, beans/lentils, nuts/seeds, higher protein grains like oats/quinoa), and follow a style of eating that resembles an anti-inflammatory diet and used Mediterranean diet as an example. Reviewed some of his meal examples like for breakfast having a bagel with cream cheese or peanut butter - reviewed no fiber in this meal and needs to at least pair up some high fiber/plant foods even if something easy and simple like celery sticks on the side. Reviewed food list of items he should choose to include in his menu just about daily if possible - garlic, oats, whole soy, nuts/seeds, citrus, beans/legumes, non-starchy veggies, berries, greens, 100% cocoa and others. Reviewed need to track added sugars and limit to 30g or less on average. Reviewed where to find on food labels and reviewed 1tsp most sweeteners are 4g per tsp. Gave Karthikeyan some resources for menu planning in this style with food lists. He took my card to contact if he has questions that come up after this appt or would like more follow up visits Time Spent in Nutritional Counseling and Treatment: 30 minutes
== END 2024-02-11 05:19 | disposition home or self-care (01) ==
LOC: DS 05:18
PROVIDERS: PCP Family Medicine; Visit Provider Dietitian, Registered
DX: E78.5 Hyperlipidemia, unspecified (principal)
CPT/HCPCS: 00123; 97802

== ENCOUNTER 2024-02-29 08:37 | Emergency (ER) | payer MEDICARE, SELFPAY ==
[2024-02-29 08:43] VITALS: BP 165/102; PULSE 92; RESP 16; TEMP 36.5; O2SAT 97
--- NOTE | 2024-02-29 08:54 | W.ED.GENAD ---
Discharge Plan Disposition Patient Disposition: Home Condition: Stable Discharge Details Clinical Impression: Pain and swelling of left wrist Primary Care Provider: Bessie Aviles V ED Provider: Sharron Chapman Home Meds and New Rx's Prescriptions: Continued folic acid 1 mg tablet 1 mg PO DAILY methotrexate sodium 10 mg tablet 35 mg PO QWEEK Ofev 150 mg capsule 150 mg PO Q12H Qty: 60 12RF coenzyme Q10 [Co Q-10] 200 mg capsule 200 mg PO DAILY hydroxychloroquine [Plaquenil] 200 mg tablet 200 mg PO DAILY zolpidem [Ambien] 10 mg tablet 10 mg PO QHS PRN meclizine 25 mg tablet 25 mg PO QID PRN Discharge Instructions Additional Instructions: Apply diclofenac gel or Voltaren gel which is [id number] topically 3 times daily to the area of tenderness and swelling Wear your wrist brace and take Tylenol 650 or 500 mg 4 times daily as needed for discomfort Follow-up with your primary care physician for reassessment next week and return earlier should you have new or worsening complaints including fever, chills, redness, or with any new or worsening complaints Referrals: Bessie Aviles MD [Primary Care Provider] - 1 day HPI General Date/Time Provider Initiated Documentation: 02/29/24 08:45. HPI Narrative: This 63-year-old male presents with 1 week history of left wrist pain and swelling's been intermittent. States he has not had anything similar although does have a history of rheumatoid arthritis. He takes methotrexate and is on a new med for pulmonary fibrosis Ofev which she started in December. He denies any fever or chills. He states that the swelling fluctuates but this morning when he awoke it was red and quite swollen, it improved slightly throughout the day. Worse with movement. Related Data Home Medications Medication Instructions Recorded Confirmed folic acid 1 mg tablet 1 mg PO DAILY 06/06/21 02/29/24 methotrexate sodium 10 mg tablet 35 mg PO QWEEK 06/06/21 02/29/24 coenzyme Q10 200 mg capsule (Co 200 mg PO DAILY 10/14/23 02/29/24 Q-10) hydroxychloroquine 200 mg tablet 200 mg PO DAILY 10/14/23 02/29/24 (Plaquenil) meclizine 25 mg tablet 25 mg PO QID PRN 10/14/23 02/29/24 zolpidem 10 mg tablet (Ambien) 10 mg PO QHS PRN 10/14/23 02/29/24 nintedanib 150 mg capsule (Ofev) 150 mg PO Q12H #60 caps 12/24/23 02/29/24 Previous Rx's Medication Instructions Recorded nintedanib 150 mg capsule (Ofev) 150 mg PO Q12H #60 caps 12/24/23 Allergies Allergy/AdvReac Type Severity Reaction Status Date / Time loratadine [From Claritin] AdvReac Mild Other (See Verified 02/29/24 08:41 Comment) General Stated Complaint: Orthopedic BREANNA: 4 Exam Narrative Exam Narrative: Alert and oriented 63-year-old well-appearing gentleman with some mild swelling to left wrist, no overlying erythema, radial pulse intact, sensation intact all 5 digits, no extension of redness or lymphangitis, mildly decreased range of motion without swelling to forearm, no discoloration rashes Course Vital Signs Vital signs: Vital Signs Temperature 36.5 C 02/29/24 08:43 Pulse 92 H 02/29/24 08:43 Respiratory Rate 16 02/29/24 08:43 Blood Pressure 165/102 H 02/29/24 08:43 Pulse Oximetry 97 02/29/24 08:43 Temperature 36.5 C 02/29/24 08:43 Temperature Source Oral 02/29/24 08:43 Pulse 92 H 02/29/24 08:43 Respiratory Rate 16 02/29/24 08:43 Respiratory Effort Normal, Non-Labored 02/29/24 08:44 Blood Pressure 165/102 H 02/29/24 08:43 Blood Pressure Position Sitting 02/29/24 08:43 Pulse Oximetry 97 02/29/24 08:43 Oxygen Delivery Method Room Air 02/29/24 08:43 Oxygen Flow Rate 0 02/29/24 08:43 Pain Level 5 02/29/24 08:43 Medical Decision Making This 63-year-old male immunosuppressed from rheumatoid arthritis on multiple medications with recent diagnosis of pulmonary fibrosis is presenting with left wrist swelling and tenderness worse in the morning and typically improving during the day with exacerbations in the evening. Patient states he is never had specific pain in his left wrist before. He denies any known specific trauma. On exam there is no obvious evidence of infectious etiology of patient's symptoms and I do suspect this is secondary to reinitiating his methotrexate just last week. Patient also endorses that he does not regularly use his Plaquenil. X-ray was ordered which does not show significant acute abnormality per radiology interpretation and my review of left wrist, specifically no effusion. No indication for arthrocentesis at this time. Diagnostic labs show mild leukocytosis of 13,000 with only very mild elevations in CRP and sed rate at 29 and 1.29, with a history of RA this seems reasonable and I have low suspicion clinically for septic arthritis. Will supply patient with a splint and have him apply Voltaren gel 3 times a day and take Tylenol arthritis. He is encouraged to talk with his navy material inspector and follow-up with his primary care physician on Saturday. He is instructed to return more urgently should he have redness, persistent swelling, or should any new concerns arise Discharged home in stable condition with stable vitals Quality:SDOH Health Related Social Needs: No Data to Display PFSH All Active Problems (Updated 02/29/24 @ 09:40 by KAMRON Diaz) Pain and swelling of left wrist (Acute) ILD (interstitial lung disease) (Acute) Degenerative joint disease (Chronic) Insomnia (Acute) Anxiety (Chronic) Hip pain (Acute) Hyperlipidemia (Acute) Elbow pain (Acute) Sebaceous nevus (Acute) Arthritis of right acromioclavicular joint (Acute) Left rotator cuff tear (Acute 11/24/19) Tendinitis of long head of biceps brachii of left shoulder (Acute ~11/2019) Rheumatoid arthritis (Chronic) Polymyalgia rheumatica (Acute) Rotator cuff tear, right (Acute) Bursitis of right shoulder (Acute) Tendonitis of long head of biceps brachii of right shoulder (Acute) Medical History (Updated 02/29/24 @ 09:40 by KAMRON Diaz) Rheumatoid arthritis No-show for appointment SLAP lesion of left shoulder (11/24/19) Bursitis of left shoulder Impingement syndrome of left shoulder Surgical History (Updated 10/14/23 @ 08:48 by Jennifer Aranda) History of repair of rotator cuff left shoulder 2019-[facility] History of tonsillectomy 02/14/06 History of foot surgery fused bone 11/11/04 Family History (Updated 10/14/23 @ 08:53 by Jennifer Aranda) Sister Stented coronary artery Mother Congenital heart valve abnormality Hypertension Brother History of kidney cancer Brother Autoimmune disorder Social History (Updated 12/24/23 @ 09:32 by Jennifer Aranda) Smoking/Tobacco Use Status: Former Tobacco Use tobacco type: cigarettes Quit Date: 11/11/21 Pack-years: 47 Tobacco: How many years used: 47 Smoking risk assessment performed?: Yes Alcohol Intake: never Drug use: Never Substance use type: does not use Housing: house Current gender identity: male Do you feel safe at home: Yes Do you feel safe in your relationship?: Yes Additional Social history: Tobacco: Former tobacco smoker started in 1974 quit 11/12 to 1 ppd.
--- NOTE | 2024-02-29 09:00 | DI.RAD_ITS ---
Exam(s) XR WRIST LT COMPLETE EXAM: XR WRIST LT COMPLETE CLINICAL HISTORY: left wrist pain, hx of ra. TECHNIQUE: 2D digital imaging was performed. Three views. COMPARISON: No exams were available for comparison FINDINGS: BONES: No acute fracture is present. No bony destructive lesion is seen. JOINTS: The carpal bones are normally aligned. SOFT TISSUE: Normal. IMPRESSION: Unremarkable radiographs of the left wrist. DATA REPOSITORY: RADIATION DOSE DELIVERED:
[2024-02-29 09:11] LABS: Abs Immature Grans 0.04 10^3/uL (0.0-0.06); Absolute Basophil Count 0.06 10^3/uL (0.0-0.2); Absolute Eosinophil Count 0.19 10^3/uL (0.0-0.7); Absolute Lymphocyte Count 1.46 10^3/uL (1.2-3.4); Absolute Monocyte Count 1.13 10^3/uL (0.1-0.8); Absolute Neutrophil Count 11.04 10^3/uL (1.2-6.7); Basophils % 0.4; Eosinophils % 1.4; HCT 45.2 % (40.0-50.0); HGB 15.7 g/dL (13.5-17.5); Immature Grans % 0.3; Lymphocytes % 10.5; MCH 31.7 pg (27.0-33.0); MCHC 34.7 % (32.0-36.0); MCV 91 fL (80-95); MPV 8.9 fL (8.0-11.0); Monocytes % 8.1; Neutrophils % 79.3; Platelet Count 381 10^3/uL (130-400); RBC 4.96 10^6/uL (4.36-5.78); RDW 12.6 % (11.8-14.1); WBC 13.92 10^3/uL (4.4-10.8)
[2024-02-29 09:13] LABS: ESR 29 mm/hr (0-20)
[2024-02-29 09:26] LABS: ALT 48 U/L (16-63); AST 22 U/L (15-37); Albumin 3.8 g/dL (3.4-5.0); Alkaline Phosphatase 122 U/L (46-116); Anion Gap 9.8 mmol/L (3-11); BUN 12 mg/dL (7-18); Bilirubin, Total 0.6 mg/dL (0.2-1.0); C-Reactive Protein 1.67 mg/dL (<or=0.5); CO2 26.2 mmol/L (21.0-32.0); Calcium 8.9 mg/dL (8.5-10.1); Chloride 104 mmol/L (98-107); Estimated GFR 83.52 (mL/min/1.73m2); Glucose 118 mg/dL (74-106); Potassium 4.1 mmol/L (3.5-5.1); Sodium 140 mmol/L (136-145); Total Protein 7.7 g/dL (6.4-8.2); Uric Acid 4.4 mg/dL (3.5-7.2)
--- NOTE | 2024-02-29 09:43 | DI.VRAD_ITS ---
PROCEDURE INFORMATION: Exam: XR Left Wrist Exam date and time: 02/29/2024 9:15 AM Age: 63 years old Clinical indication: Other: Pain TECHNIQUE: Imaging protocol: Radiologic exam of the left wrist. Views: 3 or more views. COMPARISON: MR UPPER JOINT LT WO 06/18/2022 7:49 AM FINDINGS: Bones/joints: There is no evidence of acute fracture.There is no evidence of malalignment or dislocation. Soft tissues: Normal. IMPRESSION: There is no evidence of acute fracture.There is no evidence of malalignment or dislocation. Dictated and Authenticated by: Juma Garzon MD. Ordering:VANESSA Mcdermott MD
[2024-02-29 09:55] VITALS: BP 148/80; PULSE 89; RESP 14; O2SAT 95
== END 2024-02-29 10:03 | disposition home or self-care (01) ==
PROVIDERS: Emergency Provider Physician Assistant; PCP Family Medicine
DX: M25.532 Pain in left wrist (principal); M25.432 Effusion, left wrist; Z87.39 Personal history of other diseases of the musculoskeletal system and connective tissue
CPT/HCPCS: 36415; 80053; 85652; 99283; 73110; 84550; 85025; 86140

== ENCOUNTER → 2024-03-25 10:33 | Outpatient (BNVA) | payer MEDICARE, SELFPAY | PROVIDERS: PCP Family Medicine; Referring Provider Family Medicine; Visit Provider Physician Assistant Surgical | DX: J84.9 Interstitial pulmonary disease, unspecified (principal) | CPT/HCPCS: 36415; 99214 ==

== ENCOUNTER 2024-03-25 13:25 | Outpatient (REF) | payer MEDICARE, SELFPAY ==
[2024-03-25 16:16] LABS: Abs Immature Grans 0.04 10^3/uL (0.0-0.06); Absolute Basophil Count 0.06 10^3/uL (0.0-0.2); Absolute Eosinophil Count 0.21 10^3/uL (0.0-0.7); Absolute Lymphocyte Count 1.69 10^3/uL (1.2-3.4); Absolute Monocyte Count 0.89 10^3/uL (0.1-0.8); Absolute Neutrophil Count 6.27 10^3/uL (1.2-6.7); Basophils % 0.7 %; Eosinophils % 2.3 %; HCT 44.7 % (40.0-50.0); HGB 14.9 g/dL (13.5-17.5); Immature Grans % 0.4 %; Lymphocytes % 18.4 %; MCHC 33.3 % (32.0-36.0); MCV 96 fL (80-95); MPV 10.1 fL (8.0-11.0); Monocytes % 9.7 %; Neutrophils % 68.5 %; Platelet Count 354 10^3/uL (130-400); RBC 4.66 10^6/uL (4.36-5.78); RDW 12.8 % (11.8-14.1); RDW-SD 45.1 fL; WBC 9.16 10^3/uL (4.4-10.8)
== END 2024-03-25 13:26 | disposition home or self-care (01) ==
LOC: LBN 13:25
PROVIDERS: PCP Family Medicine; Visit Provider Physician Assistant Surgical
DX: J84.9 Interstitial pulmonary disease, unspecified (principal)
CPT/HCPCS: 80053; 85025

== ENCOUNTER 2024-05-28 02:42 | Outpatient (CLI) | payer MEDICARE, SELFPAY ==
[2024-05-28 15:05] LABS: Abs Immature Grans 0.06 10^3/uL (0.0-0.06); Absolute Basophil Count 0.07 10^3/uL (0.0-0.2); Absolute Eosinophil Count 0.31 10^3/uL (0.0-0.7); Absolute Monocyte Count 0.98 10^3/uL (0.1-0.8); Absolute Neutrophil Count 6.35 10^3/uL (1.2-6.7); Basophils % 0.7 %; Eosinophils % 3.2 %; HCT 42.4 % (40.0-50.0); HGB 14.7 g/dL (13.5-17.5); Immature Grans % 0.6 %; Lymphocytes % 20.5 %; MCHC 34.7 % (32.0-36.0); MCV 92 fL (80-95); MPV 9.2 fL (8.0-11.0); Platelet Count 333 10^3/uL (130-400); RBC 4.59 10^6/uL (4.36-5.78); RDW 13.1 % (11.8-14.1); RDW-SD 44.4 fL; WBC 9.77 10^3/uL (4.4-10.8)
[2024-05-28 15:51] LABS: ALT 35 U/L (16-63); AST 20 U/L (15-37); Albumin 3.5 g/dL (3.4-5.0); Alkaline Phosphatase 104 U/L (46-116); Anion Gap 5.7 mmol/L (3-11); BUN 15 mg/dL (7-18); Bilirubin, Total 0.29 mg/dL (0.2-1.0); CO2 28.3 mmol/L (21.0-32.0); CREATININE 1.2 mg/dL (0.70-1.30); Calcium 8.8 mg/dL (8.5-10.1); Chloride 106 mmol/L (98-107); Glucose 102 mg/dL (74-106); Potassium 4.3 mmol/L (3.5-5.1); Sodium 140 mmol/L (136-145)
[2024-05-28 15:52] LABS: C-Reactive Protein < 0.50 mg/dL (<or=0.5)
== END 2024-05-28 02:43 | disposition home or self-care (01) ==
LOC: LBO 02:42
PROVIDERS: PCP Family Medicine; Visit Provider Internal Medicine Rheumatology
DX: J84.9 Interstitial pulmonary disease, unspecified (principal); Z79.899 Other long term (current) drug therapy; M05.79 Rheumatoid arthritis with rheumatoid factor of multiple sites without organ or systems involvement
CPT/HCPCS: 36415; 80053; 85025; 86140

== ENCOUNTER 2024-07-03 15:37 | Emergency (ER) | payer MEDICARE, SELFPAY ==
[2024-07-03 15:39] VITALS: BP 165/98; PULSE 92; RESP 18; TEMP 36.4; O2SAT 93
--- NOTE | 2024-07-03 15:55 | DI.RAD_ITS ---
Exam(s) XR FINGER RT INDEX EXAM: XR FINGER RT INDEX CLINICAL HISTORY: Inj, eval fracture. TECHNIQUE: 2D digital imaging was performed of the right finger. Three views were obtained. PA/AP, oblique, and lateral views were obtained. COMPARISON: CR RIGHT HAND COMPLETE from 08/23/2009 CR XR ARTHRITIS SERIES from 12/17/2019 FINDINGS: BONES: No acute fracture is present. No bony destructive lesion is seen. JOINTS: No dislocation present. SOFT TISSUE: There is a tiny density at the ulnar aspect of the head of the middle phalanx which appe ars old. There is well-circumscribed. There is soft tissue swelling of the index finger. No radiop aque foreign body is identified. IMPRESSION: No definite acute fracture or dislocation. If symptoms persist, a follow-up examination in 10-14 day s may be obtained. DATA REPOSITORY: RADIATION DOSE DELIVERED:
[2024-07-03 16:56] VITALS: BP 165/98; PULSE 92; RESP 18; TEMP 36.6; O2SAT 93
[2024-07-03 17:00] LABS: Abs Immature Grans 0.08 10^3/uL (0.0-0.06); Absolute Eosinophil Count 0.16 10^3/uL (0.0-0.7); Absolute Lymphocyte Count 1.83 10^3/uL (1.2-3.4); Absolute Monocyte Count 1.71 10^3/uL (0.1-0.8); Basophils % 0.4 %; HCT 47.4 % (40.0-50.0); Immature Grans % 0.5 %; Lymphocytes % 11.2 %; MCH 31.4 pg (27.0-33.0); MCHC 33.8 % (32.0-36.0); MCV 93 fL (80-95); MPV 9.4 fL (8.0-11.0); Monocytes % 10.5 %; Neutrophils % 76.4 %; Platelet Count 361 10^3/uL (130-400); RBC 5.09 10^6/uL (4.36-5.78); RDW-SD 44.4 fL; WBC 16.33 10^3/uL (4.4-10.8)
[2024-07-03 17:02] LABS: ESR 25 mm/hr (0-20)
[2024-07-03 17:06] LABS: Absolute Basophil Count 0.07 10^3/uL (0.0-0.2); Absolute Neutrophil Count 12.48 10^3/uL (1.2-6.7)
[2024-07-03 17:14] LABS: RBC Morphology Normal
--- NOTE | 2024-07-03 17:14 | W.ED.GENAD ---
Discharge Plan Discharge Details Chief Complaint: Cellulitis Primary Care Provider: Bessie Aviles V ED Provider: Lilly Lopez Home Meds and New Rx's Prescriptions: No Action folic acid 1 mg tablet 1 mg PO DAILY methotrexate sodium 10 mg tablet 35 mg PO QWEEK Ofev 150 mg capsule 150 mg PO Q12H Qty: 60 12RF ascorbic acid (vitamin C) 1,000 mg capsule 1 g PO DAILY multivitamin Tablet 1 tab PO DAILY Ofev 100 mg capsule 100 mg PO Q12H Qty: 60 12RF coenzyme Q10 [Co Q-10] 200 mg capsule 200 mg PO DAILY hydroxychloroquine [Plaquenil] 200 mg tablet 200 mg PO DAILY zolpidem [Ambien] 10 mg tablet 10 mg PO QHS PRN meclizine 25 mg tablet 25 mg PO QID PRN HPI General Mode of arrival: ambulatory. Date/Time Provider Initiated Documentation: 07/03/24 15:40. Limitations to Documentation: no limitations. Information obtained by: patient and old records reviewed. HPI Narrative: MDM: In brief, this is a 64-year-old male patient presenting for evaluation of a finger injury/infection. My differential includes but is not limited to fracture, dislocation, ligamentous injury, certainly considered cellulitis, abscess, tenosynovitis. The injury and physical examination is most concerning for involvement of the extensor tendon system rather than the flexor. I performed a bedside ultrasound which does show some fluid tracking along the tendon sheath, and a collection of material overlying the DIP which may represent abscess or hematoma. Will obtain x-ray and basic laboratory studies to include CBC, CMP, CRP, ESR ED Course: X-ray independently interpreted by myself, showing no acute fracture or dislocation. Laboratory studies show a leukocytosis to 16, and an elevation in ESR and CRP to 25 and 5.7 respectively, above is normal even considering his rheumatoid arthritis. He has no other significant electrolyte derangements, evidence of kidney dysfunction or liver disease. I reached out to the orthopedic surgeon covering hand at [facility], and provided him with clinical images and at this time he is concerned for infection with extensor tendon involvement, and recommended transfer to the [facility] ED for operative intervention. The patient was made n.p.o., and will be transported to [facility] by [facility] for hemodynamic monitoring. While under my care, the patient remained hemodynamically appropriate, and he received ceftriaxone and vancomycin for initial IV antibiosis. He was transferred from our department for definitive management at [facility]. Lilly Lopez MD HPI: This is a 64-year-old male patient with a past medical history significant for rheumatoid arthritis on methotrexate, history of Patsy myalgia rheumatica, interstitial lung disease, and hyperlipidemia. He is presenting for evaluation of a finger injury. On Saturday he was working on his computer and his dog stepped on the laptop, closing the lid sharply on his finger. He noted that there was some pain and bleeding along the aspect of the fingernail of the right index finger, with some swelling. Over the last several days he had noticed worsening of the swelling, with increasing warmth, redness, that seems to be tracking up the finger and into the hand. He has not taken any medications for management of the symptoms, states that he does not have any fevers or chills. He is having difficulty bending the finger, is holding his finger in extension. He did not sustain any other injuries during this event. Exam: Gen: Awake and alert, in no apparent distress HEENT: Non-icteric sclera Neck: Supple Lungs: No apparent respiratory distress, normal respiratory effort. CV: Appears well perfused Abdomen: Non-distended MSK: Moves 4 extremities without apparent limitation in ROM. His right index finger is markedly swollen, with a hematoma along the lateral aspect of the nail, less than 50% involvement and no displacement of the nail bed or cuticle. He has a large blister with swelling and fluctuance over the dorsal aspect of the DIP. He has redness, induration, and swelling that extends to the MCP of the second digit. He has limitation in flexion of the finger, and pain with palpation along the entirety of the digit. Skin: Visualized skin without rashes, cyanosis. Neuro: Normal Gait, no obvious focal deficits or facial asymmetry. Speaks in full, clear sentences. Psych: Appropriate for situation. Related Data Home Medications ?Medication ?Instructions ?Recorded ?Confirmed folic acid 1 mg tablet 1 mg PO DAILY 06/06/21 07/03/24 methotrexate sodium 10 mg tablet 35 mg PO QWEEK 06/06/21 07/03/24 coenzyme Q10 200 mg capsule (Co 200 mg PO DAILY 10/14/23 07/03/24 Q-10) hydroxychloroquine 200 mg tablet 200 mg PO DAILY 10/14/23 07/03/24 (Plaquenil) meclizine 25 mg tablet 25 mg PO QID PRN 10/14/23 07/03/24 zolpidem 10 mg tablet (Ambien) 10 mg PO QHS PRN 10/14/23 07/03/24 nintedanib 150 mg capsule (Ofev) 150 mg PO Q12H #60 caps 12/24/23 07/03/24 ascorbic acid (vitamin C) 1,000 mg 1 g PO DAILY 03/25/24 07/03/24 capsule multivitamin 1 tab PO DAILY 03/25/24 07/03/24 nintedanib 100 mg capsule (Ofev) 100 mg PO Q12H #60 caps 03/25/24 07/03/24 Previous Rx's ?Medication ?Instructions ?Recorded nintedanib 150 mg capsule (Ofev) 150 mg PO Q12H #60 caps 12/24/23 nintedanib 100 mg capsule (Ofev) 100 mg PO Q12H #60 caps 03/25/24 Allergies Allergy/AdvReac Type Severity Reaction Status Date / Time loratadine (From Claritin) AdvReac Mild Other (See Verified 03/25/24 10:52 Comment) General Stated Complaint: Cellulitis BREANNA: 3 Course Vital Signs Vital signs: Vital Signs Temperature 36.4 C L 07/03/24 15:39 Pulse 92 H 07/03/24 15:39 Respiratory Rate 18 07/03/24 15:39 Blood Pressure 165/98 H 07/03/24 15:39 Pulse Oximetry 93 07/03/24 15:39 Temperature 36.6 C 07/03/24 16:56 Temperature Source Temporal Artery Scan 07/03/24 16:56 Pulse 92 H 07/03/24 16:56 Respiratory Rate 18 07/03/24 16:56 Respiratory Effort Normal, Non-Labored 07/03/24 16:56 Blood Pressure 165/98 H 07/03/24 16:56 Blood Pressure Position Sitting 07/03/24 16:56 Pulse Oximetry 93 07/03/24 16:56 Oxygen Delivery Method Room Air 07/03/24 16:56 Oxygen Flow Rate 0 07/03/24 16:56 Lab/Test Results Lab/Test Results: Laboratory Tests Range/Units 07/03/24 16:53 ESR (0-20) mm/hr 25 H Medical Decision Making Quality:SDOH Health Related Social Needs: No Data to Display PFSH All Active Problems (Updated 03/31/24 @ 00:08 by JUDSON LYON) ILD (interstitial lung disease) (Acute) Degenerative joint disease (Chronic) Insomnia (Acute) Anxiety (Chronic) Hip pain (Acute) Hyperlipidemia (Acute) Elbow pain (Acute) Sebaceous nevus (Acute) Arthritis of right acromioclavicular joint (Acute) Left rotator cuff tear (Acute 11/24/19) Tendinitis of long head of biceps brachii of left shoulder (Acute ~11/2019) Rheumatoid arthritis (Chronic) Polymyalgia rheumatica (Acute) Rotator cuff tear, right (Acute) Bursitis of right shoulder (Acute) Tendonitis of long head of biceps brachii of right shoulder (Acute) Medical History (Updated 03/31/24 @ 00:08 by JUDSON LYON) Rheumatoid arthritis No-show for appointment SLAP lesion of left shoulder (11/24/19) Bursitis of left shoulder Impingement syndrome of left shoulder Surgical History (Updated 10/14/23 @ 08:48 by Jennifer Aranda) History of repair of rotator cuff left shoulder 2019-[place] History of tonsillectomy 02/14/06 History of foot surgery fused bone 11/11/04 Family History (Updated 10/14/23 @ 08:53 by Jennifer Aranda) Sister Stented coronary artery Mother Congenital heart valve abnormality Hypertension Brother History of kidney cancer Brother Autoimmune disorder Social History (Updated 12/24/23 @ 09:32 by Jennifer Aranda) Smoking/Tobacco Use Status: Former Tobacco Use tobacco type: cigarettes Quit Date: 11/11/21 Pack-years: 47 Tobacco: How many years used: 47 Smoking risk assessment performed?: Yes Alcohol Intake: never Drug use: Never Substance use type: does not use Housing: house Current gender identity: male Do you feel safe at home: Yes Do you feel safe in your relationship?: Yes Additional Social history: Tobacco: Former tobacco smoker started in 1974 quit 11/12 to 1 ppd. POCUS Exam (ED) Limited Soft Tissue Exam DATE OF EXAM: 07/03/24 TIME OF EXAM: 16:25 PROVIDER THAT PERFORMED THE STUDY: Lilly Lopez IS THIS A REPEAT EXAM DURING THIS ENCOUNTER: No LOCATION OF EXAM: Upper extremity/right REASON FOR EXAM: Abscess, Pain, Redness and Swelling VISUALIZED STRUCTURES: Fascia, Skin and Subcutaneous tissue PERTINENT FINDINGS/IMPRESSION: Cobblestoning right index finger, extension surface and Fluid collection N/A . Exam Complete DIFFERENTIAL DIAGNOSES: Abscess, cellulitis, tendon sheath infection
[2024-07-03 17:15] LABS: Diff Comment Diff Reviewed
[2024-07-03 17:17] LABS: C-Reactive Protein 5.75 mg/dL (<or=0.5)
[2024-07-03 17:18] LABS: ALT 37 U/L (16-63); AST 18 U/L (15-37); Albumin 4.1 g/dL (3.4-5.0); Alkaline Phosphatase 109 U/L (46-116); Anion Gap 10.2 mmol/L (3-11); BUN 15 mg/dL (7-18); Bilirubin, Total 0.62 mg/dL (0.2-1.0); CO2 26.8 mmol/L (21.0-32.0); CREATININE 1.2 mg/dL (0.70-1.30); Calcium 9.9 mg/dL (8.5-10.1); Chloride 101 mmol/L (98-107); Glucose 113 mg/dL (74-106); Magnesium 2.1 mg/dL (1.8-2.4); Potassium 3.6 mmol/L (3.5-5.1); Sodium 138 mmol/L (136-145); Total Protein 8.4 g/dL (6.4-8.2)
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
[2024-07-03] MEDS: cefTRIAXone 1 GM/50 ML BAG IVPB (18:40)
[2024-07-03 19:00] VITALS: BP 166/82; PULSE 80; RESP 20; TEMP 36.6; O2SAT 99
== END 2024-07-03 19:06 | disposition short-term general hospital (02) ==
LOC: ER 16:07
PROVIDERS: Emergency Provider Emergency Medicine; PCP Family Medicine
DX: L03.011 Cellulitis of right finger (principal)
CPT/HCPCS: 76882; 80053; 85652; 96365; 96366; 96368; 99285; 73140; 83735; 85025; 86140; J0696; J3370

== ENCOUNTER → 2024-07-09 09:21 | Outpatient (BNVA) | payer MEDICARE, MEDICAID, SELFPAY | PROVIDERS: PCP Family Medicine; Referring Provider Family Medicine; Visit Provider Physician Assistant Surgical | DX: J84.9 Interstitial pulmonary disease, unspecified (principal) | CPT/HCPCS: 99214 ==

== ENCOUNTER 2024-07-10 12:22 | Outpatient (CLI) | payer MEDICARE, MEDICAID, SELFPAY ==
[2024-07-10] MEDS: Levalbuterol HFA 15 GM INH 4 PUFF IH (13:54)
[2024-07-10] MEDS: Inhaler, Assist Device 1 EACH MC (13:55)
--- NOTE | 2024-07-22 19:57 | PFT_ITS ---
Date of service: 07/10/24 Time of Service: 12:54 Pulmonary Function Test Result Requesting Provider KAMRON Dillard Indications: Interstitial lung disease. Methotrexate stopped a few weeks ago. Interpretation Spirometry: Pre and postbronchodilator showed: 1. Normal spirometry, with no evidence of airway obstruction or restriction. 2. No response to bronchodilator 3. Nonspecific flattening of the inspiratory limb of the flow-volume loop which resolved with bronchodilator. This is unlikely to represent an extrathoracic airway obstruction 4. The profile grinder technician comments indicated a good patient effort. 5. No significant change from spirometry dated 03/26/2024 and 10/11/2023.. Lung Volumes: Lung volume studies by plethysmography showed: 1. No clear evidence of restriction. The total lung capacity was 89% predicted and the slow vital capacity was 102% predicted. 2. There is mild reduction of ERV, RV, and RV/TLC, which in the setting of a knee sign on the expiratory limb of the flow-volume loop, suggest good thoracic compliance and sufficient strength to exhale forcefully enough to drive down the residual volume. Diffusion Capacity: DLCO by single breath carbon monoxide technique showed: 1. Mildly decreased DLCO, which did not improve when adjusted for lung volumes. This may be consistent with a methotrexate related gas exchange abnormality. 2. Compared to diffusing capacity measurement dated 10/11/2023, DLCO and DL/VA have both increased 14%, suggesting beneficial effect of discontinuing methotrexate on gas exchange. Clinical correlation is recommended, with follow-up DLCO testing as clinically indicated.. Impression Normal spirometry, no evidence of restriction, and significantly improved gas exchange in the interval between October 2023 and 07/10/2024.
== END 2024-07-22 23:59 | disposition home or self-care (01) ==
PROVIDERS: PCP Family Medicine; Visit Provider Physician Assistant Surgical
DX: J84.9 Interstitial pulmonary disease, unspecified (principal)
CPT/HCPCS: 00123; 94060; 94726; 94729

== ENCOUNTER 2024-07-28 18:51 | Outpatient (REF) | payer MEDICARE, MEDICAID, SELFPAY ==
[2024-07-28 19:53] LABS: Abs Immature Grans 0.04 10^3/uL (0.0-0.06); Absolute Basophil Count 0.06 10^3/uL (0.0-0.2); Absolute Eosinophil Count 0.38 10^3/uL (0.0-0.7); Absolute Lymphocyte Count 1.55 10^3/uL (1.2-3.4); Absolute Monocyte Count 0.88 10^3/uL (0.1-0.8); Absolute Neutrophil Count 7.38 10^3/uL (1.2-6.7); Basophils % 0.6 %; ESR 24 mm/hr (0-20); Eosinophils % 3.7 %; HGB 14.9 g/dL (13.5-17.5); Immature Grans % 0.4 %; Lymphocytes % 15.1 %; MCH 30.7 pg (27.0-33.0); MCHC 32.4 % (32.0-36.0); MCV 95 fL (80-95); MPV 10.3 fL (8.0-11.0); Monocytes % 8.6 %; Neutrophils % 71.6 %; Platelet Count 352 10^3/uL (130-400); RBC 4.85 10^6/uL (4.36-5.78); RDW 12.7 % (11.8-14.1); RDW-SD 44.1 fL; WBC 10.29 10^3/uL (4.4-10.8)
[2024-07-28 20:51] LABS: ALT 33 U/L (16-63); AST 25 U/L (15-37); Alkaline Phosphatase 116 U/L (46-116); Anion Gap 11.4 mmol/L (3-11); BUN 16 mg/dL (7-18); C-Reactive Protein < 0.50 mg/dL (<or=0.5); CO2 25.6 mmol/L (21.0-32.0); CREATININE 1.4 mg/dL (0.70-1.30); Chloride 103 mmol/L (98-107); Estimated GFR 55.43 (mL/min/1.73m2); Glucose 98 mg/dL (74-106); Potassium 4.3 mmol/L (3.5-5.1); Sodium 140 mmol/L (136-145); Total Protein 7.7 g/dL (6.4-8.2)
[2024-07-28 21:06] LABS: Calculated LDL 155 mg/dL (<100); Cholesterol 225 mg/dL (<200); HDL Cholesterol 57 mg/dL (40-60); Triglyceride 66 mg/dL (<150)
== END 2024-07-28 18:52 | disposition home or self-care (01) ==
LOC: NCHCN 18:51
PROVIDERS: PCP Family Medicine; Visit Provider Family Medicine
DX: L03.113 Cellulitis of right upper limb (principal); E78.5 Hyperlipidemia, unspecified; R82.89 Other abnormal findings on cytological and histological examination of urine
CPT/HCPCS: 80053; 80061; 85652; 85025; 86140

== ENCOUNTER 2024-07-30 19:56 | Outpatient (REF) | payer MEDICARE, SELFPAY ==
[2024-07-30 18:40] LABS: Bilirubin Negative (Negative); Blood Large (Negative); Clarity Sl Cloudy (Clear); Glucose Negative (Negative); Ketones Negative (Negative); Leukocyte Esterase Small (Negative); Nitrite Positive (Negative); Urobilinogen 0.2 mg/dL (Up to 0.2)
[2024-07-30 18:50] LABS: Bacteria Moderate HPF (Negative); C & S Indicated? C&S Done As Ordered; Casts Negative LPF (Negative); Crystals Negative HPF (Negative); Epithelial Cells Few HPF (Negative); Mucus Negative (Negative); RBC >50 HPF (0-2); WBC >50 HPF (0-5)
== END 2024-07-30 19:57 | disposition home or self-care (01) ==
LOC: NCHCN 19:56
PROVIDERS: PCP Family Medicine; Visit Provider Family Medicine
DX: N39.0 Urinary tract infection, site not specified (principal); R82.89 Other abnormal findings on cytological and histological examination of urine
CPT/HCPCS: 87077; 81003; 81015; 87086; 87186

== ENCOUNTER 2024-09-21 03:33 | Outpatient (CLI) | payer MEDICARE, SELFPAY ==
[2024-09-21 14:31] LABS: ALT 38 U/L (16-63); AST 22 U/L (15-37); Albumin 3.7 g/dL (3.4-5.0); Alkaline Phosphatase 102 U/L (46-116); Anion Gap 6.7 mmol/L (3-11); BUN 16 mg/dL (7-18); Bilirubin, Total 0.32 mg/dL (0.2-1.0); CO2 31.3 mmol/L (21.0-32.0); CREATININE 1.4 mg/dL (0.70-1.30); Calcium 9.1 mg/dL (8.5-10.1); Calculated LDL 135 mg/dL (<100); Chloride 105 mmol/L (98-107); Cholesterol 200 mg/dL (<200); Estimated GFR 55.43 (mL/min/1.73m2); Glucose 88 mg/dL (74-106); HDL Cholesterol 52 mg/dL (40-60); Potassium 4.1 mmol/L (3.5-5.1); Sodium 143 mmol/L (136-145); Total Protein 7.7 g/dL (6.4-8.2); Triglyceride 66 mg/dL (<150)
== END 2024-09-21 03:34 | disposition home or self-care (01) ==
LOC: LBO 03:33
PROVIDERS: PCP Family Medicine; Visit Provider Family Medicine
DX: E78.5 Hyperlipidemia, unspecified (principal); Z00.00 Encounter for general adult medical examination without abnormal findings
CPT/HCPCS: 36415; 80053; 80061

== ENCOUNTER → 2024-10-12 09:36 | Outpatient (BNVA) | payer MEDICARE, SELFPAY | PROVIDERS: PCP Family Medicine; Referring Provider Family Medicine; Visit Provider Physician Assistant Surgical ==

== ENCOUNTER 2024-10-12 12:54 | Outpatient (CLI) | payer MEDICARE, SELFPAY ==
[2024-10-12 10:41] LABS: Abs Immature Grans 0.06 10^3/uL (0.0-0.06); Absolute Basophil Count 0.08 10^3/uL (0.0-0.2); Absolute Eosinophil Count 0.22 10^3/uL (0.0-0.7); Absolute Lymphocyte Count 1.87 10^3/uL (1.2-3.4); Absolute Monocyte Count 1.06 10^3/uL (0.1-0.8); Basophils % 0.7 %; Eosinophils % 1.9 %; HGB 15.5 g/dL (13.5-17.5); Immature Grans % 0.5 %; Lymphocytes % 16.4 %; MCH 30.4 pg (27.0-33.0); MCV 92 fL (80-95); MPV 9.6 fL (8.0-11.0); Monocytes % 9.3 %; Neutrophils % 71.2 %; Platelet Count 374 10^3/uL (130-400); RDW 12.6 % (11.8-14.1); WBC 11.38 10^3/uL (4.4-10.8)
[2024-10-12 11:00] LABS: ALT 36 U/L (16-63); AST 26 U/L (15-37); Albumin 3.8 g/dL (3.4-5.0); Alkaline Phosphatase 124 U/L (46-116); Anion Gap 8.5 mmol/L (3-11); BUN 14 mg/dL (7-18); Bilirubin, Total 0.37 mg/dL (0.2-1.0); CO2 28.5 mmol/L (21.0-32.0); CREATININE 1.5 mg/dL (0.70-1.30); Calcium 9.6 mg/dL (8.5-10.1); Chloride 105 mmol/L (98-107); Estimated GFR 51.03 (mL/min/1.73m2); Glucose 107 mg/dL (74-106); Potassium 4.9 mmol/L (3.5-5.1); Sodium 142 mmol/L (136-145); Total Protein 8.3 g/dL (6.4-8.2)
== END 2024-10-12 12:55 | disposition home or self-care (01) ==
PROVIDERS: PCP Family Medicine; Referring Provider Physician Assistant Surgical; Visit Provider Physician Assistant Surgical
DX: J84.9 Interstitial pulmonary disease, unspecified (principal)
CPT/HCPCS: 36415; 80053; 99214; 85025

== ENCOUNTER 2024-10-15 01:42 | Outpatient (CLI) | payer MEDICARE, SELFPAY ==
--- NOTE | 2024-10-15 06:45 | DI.CT_ITS ---
Exam(s) CT CHEST WO EXAM: CT CHEST WO CLINICAL HISTORY: assess for progression of interstitial lung disease,j84.9. TECHNIQUE: Imaging protocol: Axial computed tomography images were obtained and coronal and sagittal reformatted images were created and reviewed. Computer aided detection (CAD) was utilized. CONTRAST MATERIAL: Noncontrast COMPARISON: CR XR CHEST 2V PA LATERAL from 09/19/[address] CHEST HIGH RESOLUTION from 10/07/2023 FINDINGS: Pulmonary parenchyma: No consolidation. No suspicious nodules. Stable scattered tiny nodules. Stabl e benign right perifissural nodule. Emphysema/interstitial changes: Overall moderate centrilobular emphysematous changes with greater sev erity in the anterior portions of the upper lobes, right lung base and the left lower lobe. In these locations, there is significant honeycombing. Tracheobronchial tree: No mucous plugging. mild traction bronchiectasis, greatest in the lingula and left lower lobe. Pleura: No effusion or pneumothorax. Heart: The heart is not dilated. The coronary arteries show no visible calcifications. Aorta: Thoracic aorta non-dilated. Mild atherosclerotic changes. Lymph nodes: No enlarged lymph nodes. Bones: Degenerative changes are seen. No evidence of compression fracture. Upper abdomen: Unremarkable. Soft tissues: Unremarkable. IMPRESSION: Stable emphysematous and fibrotic changes, greatest at the left lung base. No superimposed acute infiltrate. RADIATION DOSE DELIVERED: 222.1mGy.cm Total DLP 222.1mGy.cm Total DLP DATA REPOSITORY: All CT scans at this facility are submitted to the National Radiology Data Registry (NRDR) Dose Index Registry (DIR) with the [employer] (A[employer]). RADIATION OPTIMIZATION: All CT scans at this facility use at least one of these dose optimization te chniques: automated exposure control; mA and/or kV adjustment per patient size (includes targeted exa ms where dose is matched to clinical indication); or iterative reconstruction.
== END 2024-10-15 02:02 ==
LOC: DI 01:42
PROVIDERS: PCP Family Medicine; Visit Provider Physician Assistant Surgical
DX: J84.9 Interstitial pulmonary disease, unspecified (principal)
CPT/HCPCS: 71250

== ENCOUNTER 2024-11-25 03:18 | Outpatient (CLI) | payer MEDICARE, SELFPAY ==
[2024-11-25 10:51] LABS: ESR 25 mm/hr (0-20)
[2024-11-25 10:52] LABS: Abs Immature Grans 0.05 10^3/uL (0.0-0.06); Absolute Eosinophil Count 0.25 10^3/uL (0.0-0.7); Absolute Lymphocyte Count 1.64 10^3/uL (1.2-3.4); Absolute Monocyte Count 0.74 10^3/uL (0.1-0.8); Absolute Neutrophil Count 9.37 10^3/uL (1.2-6.7); Basophils % 0.7 %; Eosinophils % 2.1 %; HGB 13.9 g/dL (13.5-17.5); Immature Grans % 0.4 %; Lymphocytes % 13.5 %; MCH 30.7 pg (27.0-33.0); MCHC 33.9 % (32.0-36.0); MCV 91 fL (80-95); Monocytes % 6.1 %; Neutrophils % 77.2 %; Platelet Count 401 10^3/uL (130-400); RBC 4.53 10^6/uL (4.36-5.78); RDW 12.8 % (11.8-14.1); RDW-SD 42.2 fL; WBC 12.14 10^3/uL (4.4-10.8)
[2024-11-25 10:53] LABS: Absolute Basophil Count 0.08 10^3/uL (0.0-0.2)
[2024-11-25 11:15] LABS: ALT 25 U/L (16-63); AST 19 U/L (15-37); Albumin 3.6 g/dL (3.4-5.0); Alkaline Phosphatase 109 U/L (46-116); Anion Gap 5.5 mmol/L (3-11); BUN 15 mg/dL (7-18); Bilirubin, Total 0.38 mg/dL (0.2-1.0); C-Reactive Protein 0.77 mg/dL (<or=0.5); CO2 29.5 mmol/L (21.0-32.0); CREATININE 1.4 mg/dL (0.70-1.30); Calcium 9.4 mg/dL (8.5-10.1); Chloride 106 mmol/L (98-107); Estimated GFR 55.43 (mL/min/1.73m2); Glucose 146 mg/dL (74-106); Sodium 141 mmol/L (136-145); Total Protein 7.6 g/dL (6.4-8.2)
== END 2024-11-25 03:19 | disposition home or self-care (01) ==
LOC: LBO 03:18
PROVIDERS: PCP Family Medicine; Visit Provider Internal Medicine Rheumatology
DX: M05.79 Rheumatoid arthritis with rheumatoid factor of multiple sites without organ or systems involvement (principal); M06.9 Rheumatoid arthritis, unspecified; N28.9 Disorder of kidney and ureter, unspecified; Z79.899 Other long term (current) drug therapy
CPT/HCPCS: 36415; 80053; 85652; 85025; 86140

== ENCOUNTER 2024-11-26 09:00 | Outpatient (REF) | payer MEDICARE, SELFPAY ==
[2024-11-26 13:14] LABS: Bilirubin Negative (Negative); Blood Trace-intact (Negative); Clarity Cloudy (Clear); Glucose Negative (Negative); Ketones Negative (Negative); Leukocyte Esterase Large (Negative); Nitrite Negative (Negative); Specific Gravity 1.015 (1.005-1.025); Urobilinogen 0.2 mg/dL (Up to 0.2); pH 7.5 (5-8)
[2024-11-26 13:22] LABS: Bacteria Few HPF (Negative); C & S Indicated? Yes; Casts Negative LPF (Negative); Crystals Negative HPF (Negative); Epithelial Cells Negative HPF (Negative); Mucus Negative (Negative); Other Cells Rare Transitional (Negative); WBC >50 HPF (0-5)
== END 2024-11-26 09:01 | disposition home or self-care (01) ==
LOC: NCHCN 09:00
PROVIDERS: PCP Family Medicine; Visit Provider Family Medicine
DX: M06.9 Rheumatoid arthritis, unspecified (principal); N28.9 Disorder of kidney and ureter, unspecified; R82.89 Other abnormal findings on cytological and histological examination of urine
CPT/HCPCS: 81003; 81015; 87086

== ENCOUNTER 2024-12-07 01:50 | Outpatient (CLI) | payer MEDICARE, SELFPAY ==
--- NOTE | 2024-12-07 | DI.US_ITS ---
Exam(s) US RENAL EXAM: US RENAL CLINICAL HISTORY: LOWER UTI SYMPTOMS R39.9. TECHNIQUE: Perez scale, color and spectral Doppler were used. COMPARISON: US US ABDOMEN LIMITED from 10/10/2023 FINDINGS: Renal size in cm: Right: 10.3. Left: 11.0. Echogenicity: Normal. Hydronephrosis: No. Cyst or mass: No. Nephrolithiasis: No. Other findings: None. Bladder:The bladder wall has a trabeculated appearance with an irregular wall. No definite intralumi nal mass is seen. No intraluminal calcification is present. Ureteral jets: Right: Visualized and unremarkable. Left: Visualized and unremarkable. Prevoid vol:939 cc Postvoid vol:582 cc Prostate: 39 cc Renal color flow: Symmetric and within normal limits. IMPRESSION: 1. No evidence of nephrolithiasis or hydronephrosis. 2. Trabeculated bladder wall with a large postvoid urinary bladder volume. This can be seen with chr onic bladder outlet obstruction. Infectious/inflammatory process cannot be excluded. 3. Mildly enlarged prostate gland. DATA REPOSITORY:
== END 2024-12-07 02:10 ==
LOC: DI 01:50
PROVIDERS: PCP Family Medicine; Visit Provider Family Medicine
DX: R39.9 Unspecified symptoms and signs involving the genitourinary system (principal)
CPT/HCPCS: 76770

== ENCOUNTER → 2024-12-24 12:34 | Outpatient (BNVA) | payer MEDICARE, SELFPAY | PROVIDERS: PCP Family Medicine; Referring Provider Family Medicine; Visit Provider Nurse Practitioner Gerontology | DX: N40.1 Benign prostatic hyperplasia with lower urinary tract symptoms (principal); N13.8 Other obstructive and reflux uropathy; R33.8 Other retention of urine; R03.0 Elevated blood-pressure reading, without diagnosis of hypertension | CPT/HCPCS: 51798; 81003; 99215 ==

== ENCOUNTER 2024-12-24 14:45 | Outpatient (REF) | payer MEDICARE, SELFPAY | END 2024-12-24 14:46 | disposition home or self-care (01) | LOC: LBN 14:45 | PROVIDERS: PCP Family Medicine; Visit Provider Nurse Practitioner Gerontology | DX: N40.1 Benign prostatic hyperplasia with lower urinary tract symptoms (principal); N13.8 Other obstructive and reflux uropathy; R33.9 Retention of urine, unspecified | CPT/HCPCS: 87086 ==

== ENCOUNTER 2024-12-24 14:51 | Outpatient (CLI) | payer MEDICARE, SELFPAY ==
[2024-12-25 00:08] LABS: PSA, Diagnostic 1.4 ng/mL (<=4.5)
== END 2024-12-24 14:52 | disposition home or self-care (01) ==
LOC: LBO 14:52
PROVIDERS: PCP Family Medicine; Referring Provider Nurse Practitioner Gerontology; Visit Provider Nurse Practitioner Gerontology
DX: N40.1 Benign prostatic hyperplasia with lower urinary tract symptoms (principal); N13.8 Other obstructive and reflux uropathy; R33.9 Retention of urine, unspecified
CPT/HCPCS: 36415; 84153

== ENCOUNTER → 2025-01-13 07:58 | Outpatient (BNVA) | payer MEDICARE, SELFPAY | PROVIDERS: PCP Family Medicine; Referring Provider Family Medicine; Visit Provider Physician Assistant Surgical | DX: J84.9 Interstitial pulmonary disease, unspecified (principal); Z87.891 Personal history of nicotine dependence | CPT/HCPCS: 99214 ==

== ENCOUNTER → 2025-02-22 09:40 | Outpatient (BNVA) | payer MEDICARE, SELFPAY | PROVIDERS: PCP Family Medicine; Referring Provider Family Medicine; Visit Provider Nurse Practitioner Gerontology | DX: N40.1 Benign prostatic hyperplasia with lower urinary tract symptoms (principal); N13.8 Other obstructive and reflux uropathy; R33.9 Retention of urine, unspecified; R03.0 Elevated blood-pressure reading, without diagnosis of hypertension; Z80.52 Family history of malignant neoplasm of bladder; R39.9 Unspecified symptoms and signs involving the genitourinary system | CPT/HCPCS: 51798; 99213 ==

== ENCOUNTER 2025-03-15 02:52 | Outpatient (CLI) | payer MEDICARE, SELFPAY ==
[2025-03-15 10:42] LABS: Abs Immature Grans 0.04 10^3/uL (0.0-0.06); Absolute Basophil Count 0.05 10^3/uL (0.0-0.2); Absolute Eosinophil Count 0.17 10^3/uL (0.0-0.7); Absolute Monocyte Count 0.76 10^3/uL (0.1-0.8); Absolute Neutrophil Count 6.36 10^3/uL (1.2-6.7); Basophils % 0.6 %; Eosinophils % 1.9 %; HGB 14.2 g/dL (13.5-17.5); Immature Grans % 0.4 %; Lymphocytes % 17.8 %; MCH 30.8 pg (27.0-33.0); MCHC 33.8 % (32.0-36.0); MCV 91 fL (80-95); MPV 9.3 fL (8.0-11.0); Monocytes % 8.5 %; Neutrophils % 70.8 %; Platelet Count 371 10^3/uL (130-400); RBC 4.61 10^6/uL (4.36-5.78); RDW 13.8 % (11.8-14.1); WBC 8.98 10^3/uL (4.4-10.8)
[2025-03-15 11:09] LABS: ALT 44 U/L (16-63); AST 26 U/L (15-37); Albumin 3.7 g/dL (3.4-5.0); Alkaline Phosphatase 93 U/L (46-116); Anion Gap 5.9 mmol/L (3-11); BUN 13 mg/dL (7-18); Bilirubin, Total 0.4 mg/dL (0.2-1.0); CO2 30.1 mmol/L (21.0-32.0); CREATININE 1.2 mg/dL (0.70-1.30); Chloride 103 mmol/L (98-107); Estimated GFR 66.28 (mL/min/1.73m2); Glucose 95 mg/dL (74-106); Potassium 3.8 mmol/L (3.5-5.1); Sodium 139 mmol/L (136-145); Total Protein 7.4 g/dL (6.4-8.2)
[2025-03-15 11:11] LABS: C-Reactive Protein < 0.50 mg/dL (<or=0.5)
== END 2025-03-15 02:53 | disposition home or self-care (01) ==
PROVIDERS: PCP Family Medicine; Visit Provider Internal Medicine Rheumatology
DX: Z79.899 Other long term (current) drug therapy (principal); M05.79 Rheumatoid arthritis with rheumatoid factor of multiple sites without organ or systems involvement
CPT/HCPCS: 36415; 80053; 85025; 86140